=== PATIENT | male | born 1965 | race Caucasian/White ===

== ENCOUNTER 2023-03-31 09:13 | Outpatient (RCR) | payer OTHER, SELFPAY | END 2023-03-31 23:59 | disposition home or self-care (01) | LOC: RPT 09:13 | PROVIDERS: ATTENDING PHYSICIAN Physical Medicine & Rehabilitation; PRIMARYCARE PHYSICIAN Student in an Organized Health Care Education/Training Program | DX: M48.061 Spinal stenosis, lumbar region without neurogenic claudication (principal); M51.16 Intervertebral disc disorders with radiculopathy, lumbar region | CPT/HCPCS: 97010; 97110; 97140; 97162 ==

== ENCOUNTER 2023-04-30 12:04 | Outpatient (RCR) | payer OTHER, SELFPAY | END 2023-04-30 23:59 | disposition home or self-care (01) | LOC: RPT 12:04 | PROVIDERS: ATTENDING PHYSICIAN Physical Medicine & Rehabilitation; PRIMARYCARE PHYSICIAN Student in an Organized Health Care Education/Training Program | DX: M54.16 Radiculopathy, lumbar region (principal); M48.061 Spinal stenosis, lumbar region without neurogenic claudication; M51.36 Other intervertebral disc degeneration, lumbar region; Z73.6 Limitation of activities due to disability; M62.81 Muscle weakness (generalized); R26.2 Difficulty in walking, not elsewhere classified | CPT/HCPCS: 97010; 97110; 97140 ==

== ENCOUNTER 2023-12-28 08:22 | Emergency (ER) | payer OTHER, SELFPAY ==
[2023-12-28 08:23] VITALS: BP 234/144; BMI 45.1
[2023-12-28 08:51] LABS: % Basophils 0.7 % (0-2); % Eosinophils 3.4 % (0-6); % Immature Granulocytes 0.2 % (0-0.5); % Lymphocytes 18.6 % (20.5-51.1); % Monocytes 10.9 % (1.7-9.3); % Neutrophils 66.2 % (42.2-75.2); Absolute Basophils 0.1 10^3/uL (0-0.2); Absolute Eosinophils 0.3 10^3/uL (0-0.7); Absolute Lymphocytes 1.6 10^3/uL (1.2-3.4); Absolute Neutrophils 5.8 10^3/uL (1.4-6.5); Hematocrit 44.9 % (39.0-52.0); Hemoglobin 15.3 g/dL (13.0-18.0); Mean Corp Hgb Conc. 34.1 g/dL (33.0-37.0); Mean Corpuscular Hgb 28.1 pg (27.0-31.0); Mean Corpuscular Volume 82.4 fL (80.0-94.0); Mean Platelet Volume 12.2 fL (7.4-10.4); Nucleated Red Blood Cells % 0 % (-); Platelet Count 217 10^3/uL (130-400); Red Blood Cell Count 5.45 10^6/uL (4.70-6.10); Red Cell Dist. Width 13.8 % (11.5-14.5); White Blood Cell Count 8.7 10^3/uL (4.8-10.8)
[2023-12-28 08:56] LABS: Blood Urea Nitrogen 14 mg/dl (9-20); Calcium 9.7 mg/dl (8.4-10.2); Carbon Dioxide 27 mmol/L (22-30); Chloride 103 mmol/L (98-107); Estimated Creatinine Clearance > 125 ml/min; Glucose 110 mg/dl (70-99); Sodium 143 mmol/L (135-145); eGFR > 60.00
--- NOTE | 2023-12-28 08:56 | ED.GENMED ---
History of Present Illness
General
Chief Complaint: Dizziness
Source: patient
Exam Limitations: none
Time Seen by Provider: 12/28/23 08:37
Nursing documentation reviewed up to this point in time: agreed with
History of Present Illness
History of Present Illness:
58-year-old male with history of hypertension, hyperlipidemia, asthma, obesity, diabetes presents to the ER for evaluation of hypertension. Patient was brought over from outpatient echocardiogram due to severe hypertension. Patient reports that he
has had issues with resistant hypertension and has been on multiple antihypertensives currently takes labetalol, valsartan/hydrochlorothiazide to control his blood pressure. He has been following with Dr. Stockton for his blood pressure and was
scheduled for outpatient echocardiogram today due to his high blood pressure. Today had echocardiogram he was noted to be severely hypertensive and was brought over prior to the study being completed. He says he did have some dizziness today and
says that he was feeling anxious when he realized his blood pressure was very high. He denies any headache. He denies any chest pain. He denies any shortness of breath. He denies any nausea or vomiting. Denies any weakness or numbness in his
extremities. No change in his vision. He says that he had not taken his blood pressure medication but when they discovered his blood pressure was very high he took his morning dose of labetalol as well as his Diovan (approximately 20 minutes prior
to arriving here in the ER). He does note that he has been on Ozempic recently for weight loss and has lost about 40 pounds this year successfully but despite this his blood pressure has actually been trending upwards as an outpatient.
Past History
Past History
ED Past Medical History: HTN, Hypercholesterolemia and Other (Seasonal allergies )
Social History
Tobacco: Non-smoker
Living: with family
Employment: Employed
Family History
Family History: Early CAD (Dad with [place] at 39 )
Review of Systems
Review of Systems
All Other Systems: ROS reviewed and negative except as documented in HPI and ROS
Constitutional: Denies fever or chills
Respiratory: Denies cough or trouble breathing
Cardiac: Denies chest pain or palpitations
ABD/GI: Denies abdominal pain, nausea or vomiting
: Denies flank pain
Musculoskeletal: Denies neck pain or back pain
Neurological: Reports dizzy; Denies headache, weakness or numbness
Phy Exam
Physical Exam
Physical Exam:
General: Awake, alert, oriented x3; anxious but no acute distress
Head: Normocephalic, atraumatic
Eyes: Conjunctiva normal, EOMI, pupils equal round reactive to light bilaterally
Throat: Airway intact, handling secretions
Neck: Trachea midline, supple without meningismus
Lungs: Clear to auscultation bilaterally, no wheezing, rales, rhonchi
Heart: Regular rate and rhythm, no murmurs, gallops, or rubs
Abd: Soft, non distended, nontender
Neuro: Cranial nerves grossly intact, speech fluid, no gross motor or sensory deficits
Skin: no rash
Extremities: No edema in extremities, equal pulses in all extremities
Scores
Heart Failure Risk
Heart Failure Risk Score: Not Applicable
Heart Score for Chest Pain Patients
STEMI patient?: Not applicable
Withdrawal Assessment of Alcohol
Withdrawal Assessment Completed?: Not applicable
Course
Orders/Labs/Results
Orders:
Orders
12/28/23 08:27
ECG [Electrocardiogram (*1)] Urgent
Reason for Study: Vertigo / Dizzy
EKG- Treatment ONCE
12/28/23 08:30
Basic Metabolic Panel Urgent
Complete Blood Count/With Diff Urgent
TSH Reflex To Free T4 Urgent
Comment: ADD ON
12/28/23 08:38
CT Head W/o Iv Contrast Urgent
Comment:
Reason For Exam: severe HTN, dizziness
12/28/23 08:48
Clonidine [Catapres] 0.2 mg PO NOW STA
HydrALAZINE [Apresoline] 10 mg IV NOW STA
12/28/23 08:59
Add On- LAB Urgent
Tests Added?: TSH reflex to Free T4
12/28/23 09:00
Troponin I Urgent
Urinalysis Reflex To Culture Urgent
Date Specimen was Collected: 12/28/23
Time Specimen was Collected: 08:58
Abnormal Lab Results
12/28/23
08:30
MPV 12.2 H fL
(7.4-10.4)
Absolute Monos (auto) 1.0 H 10^3/uL
(0.1-0.6)
Lymphocytes % 18.6 L %
(20.5-51.1)
Monocytes % 10.9 H %
(1.7-9.3)
Glucose 110 H mg/dl
(70-99)
12/28/23 08:30
12/28/23 08:30
Vital Signs
Initial and Last Documented VS:
Initial Vital Signs
Temp Pulse Resp BP Pulse Ox
36.8 C 80 18 234/144 99
12/28/23 08:23 12/28/23 08:23 12/28/23 08:23 12/28/23 08:23 12/28/23 08:23
Last Documented Vital Signs
Temp Pulse Resp BP Pulse Ox
36.8 C 74 13 156/86 94
12/28/23 08:23 12/28/23 10:30 12/28/23 10:30 12/28/23 10:30 12/28/23 10:15
MDM/Problems Addressed
Differential Diagnosis Includes:
Hypertensive urgency
MDM/Problems Addressed:
58-year-old male presents for evaluation of severe hypertension; was scheduled for outpatient echocardiogram in part following up on resistant outpatient hypertension. He did not have the study performed but instead referred to the ER for his
severe hypertension. He had not taken his blood pressure medication this morning, but did take his morning dose of labetalol and Diovan prior to coming over to the ER. He had some dizziness prior to arrival but is asymptomatic here in the ER. He
is severely hypertensive to 234/144 here with otherwise normal vitals. Physical exam as above. Will check labs including a CBC and a CMP, troponin. Check an EKG. Will check CT head. Provide IV hydralazine can trial some p.o. clonidine in
addition to meds he took prior to arrival. Will reassess after the above.
Labs reviewed: CBC and CMP unremarkable�renal function normal. Troponin undetectable. Urinalysis: Trace albumin. CT head negative for any acute pathology. After ED treatment with hydralazine and clonidine patient's blood pressure has improved
significantly down to 156/86. Hold on additional aggressive blood pressure control to avoid overshooting and causing dizziness. He feels well on reassessment, I think he is stable for discharge at this point in time. He responded quite well to
clonidine we will start low-dose clonidine daily. Referred to nephrology for further evaluation of his resistant blood pressure. He feels comfortable this plan. Spoke about return precautions all questions answered.
Chronic conditions affecting care:
Hypertension
Acute Exacerbation and/or Progression of Chronic Illness:
Acutely hypertensive managed as above
Acute Exacerbation and/or Progression of Chronic Illness: HTN
*Radiology
Radiology exam reviewed: radiology read reviewed
*Pulse Oximetry
Patient hypoxic: no
*EKG
Interpreted by ED Provider?: Yes
Heart Rate: 79
Rate: normal
Rhythm: sinus
Interval: normal interval
QRS Pattern: right bundle branch block
Ischemia: no ischemia
*Critical Care Note
Total Time (30-74mins, 75-104mins- exclusive of procedures): Not Applicable
Data Reviewed
Review of Other/Old Records Reveals: Labs and Records
Source: patient and records
ED Attending Note
-
Portions of this chart may have been created with voice recognition software.� Occasional wrong word or��sound alike� substitutions may have occurred due to the inherent limitations of voice recognition software.
Discharge Plan
Departure
Patient Disposition: Home (Routine Discharge)
Date of Disposition: 12/28/23
Time of Disposition: 11:35
Patient with high blood pressure during this ER visit?: Yes
Discharge Problem:
Hypertensive urgency
Instructions: High Blood Pressure ED
Prescriptions:
New
clonidine HCl 0.2 mg tablet
0.2 mg PO DAILY Qty: 30 0RF
No Action
fluticasone propion-salmeterol [Advair Diskus] 250 MCG/50 MCG blister with device
1 puff inhalation DAILY
potassium chloride [K-Tab] 10 MEQ tablet extended release
10 meq PO BID
calcium carbonate [Calcium 500] 500 MG tablet
500 mg PO BID
valsartan-hydrochlorothiazide [Diovan HCT] 160 MG/25 MG tablet
1 tab PO DAILY
rosuvastatin [Crestor] 10 MG tablet
10 mg PO DAILY
multivitamin with folic acid [Tab-A-Inga] 1 TABLET tablet
1 tab PO DAILY
Referrals:
Nica Medeiros MD [Family Provider] - Follow up in 5-7 days
Jaosn Ortiz MD [Active] - Call in 1-3 days for appt
()
Activity Restrictions/Additional Instructions:
Thank you for visiting the Emergency Department at [facility].
1. Please schedule a follow up appointment as directed. Call first thing tomorrow morning to make an appointment.
2. If indicated, please take your medications as instructed and indicated on discharge paperwork.
3. If any of your symptoms do not improve, or persist, or become more severe within 6-12 hours, please return to the emergency department for further care.
4. Please return to the emergency department if you develop a headache, neck pain/stiffness, fever greater than 100.4F, chest pain, shortness of breath, persistent nausea, vomiting, slurred speech, difficulty walking, numbness/tingling, weakness,
signs of infection or any other symptoms that are worrisome to you.
Please call [phone] if you have any questions.
Interventions
Interventions:
*Risk Screen - Suicide Last Done: 12/28/23 08:23
*General Assessment Last Done: 12/28/23 08:23
*Neglect/Abuse Screening Last Done: 12/28/23 08:23
ED- Fall Risk Assessment Last Done: 12/28/23 09:00
*ED COVID-19 Vaccine History Last Done: 12/28/23 08:28
ED- Neurological Assessment Last Done: 12/28/23 09:00
ED- Cardiac Assessment Last Done: 12/28/23 09:00
ED Swallowing Screen Last Done: 12/28/23 09:00
Discharge Date and Time
Print Language: VENEZUELAN
[2023-12-28 09:14] LABS: Urine Albumin Trace (Neg - Trace); Urine Bilirubin Negative (Negative); Urine Character Clear (Clear); Urine Color Yellow; Urine Glucose Negative (Negative); Urine Ketone Negative (Negative); Urine Leukocyte Negative (Negative); Urine Nitrite Negative (Negative); Urine Occult Blood Negative (Negative); Urine Urobilinogen Negative (Neg - 1+)
[2023-12-28 09:15] VITALS: BP 218/114
[2023-12-28] MEDS: CATAPRES 0.2 MG PO (09:16)
[2023-12-28] MEDS: APRESOLINE 10 MG IV (09:17)
[2023-12-28 09:30] VITALS: BP 195/101
[2023-12-28 09:37] LABS: Troponin I < 0.012 ng/ml
[2023-12-28 10:00] VITALS: BP 165/90
[2023-12-28 10:30] VITALS: BP 156/86
[2023-12-28 11:00] VITALS: BP 162/88
[2023-12-28 12:00] LABS: TSH Reflex To Free T4 2.01 uIU/ml (0.47-4.68)
== END 2023-12-28 11:46 | disposition home or self-care (01) ==
LOC: EMR 08:22
PROVIDERS: EMERGENCY PHYSICIAN Emergency Medicine; FAMILY PHYSICIAN Student in an Organized Health Care Education/Training Program
DX: I16.0 Hypertensive urgency (principal); E11.9 Type 2 diabetes mellitus without complications; E78.00 Pure hypercholesterolemia, unspecified; J45.909 Unspecified asthma, uncomplicated
CPT/HCPCS: 99285; 96374; 70450; 80048; 81003; 84443; 84484; 85025; 93005

== ENCOUNTER 2024-01-01 15:02 | Inpatient (IN) | payer OTHER, SELFPAY ==
[2024-01-01] VITALS (8 sets, daily range): BP systolic 163–190; BP diastolic 99–114; BMI 43.6
--- NOTE | 2024-01-01 13:55 | W.CON.NEPH ---
Consultation
-
Date/Time Consultation Requested: 01/01/2024 1:00 PM
Date/Time Consultation Performed: 01/01/2024 1:30 PM
Requesting Provider: Dr. Gan
Performing Provider: Dr. Tony
Reason for Consultation: Uncontrolled hypertension
Medical History
-
Chief Complaint: Uncontrolled hypertension
History of Present Illness:
The patient is a 58-year-old male with a past medical history of hypertension since his mid 40s. He has been managed by cardiology for his hypertension and did previously had an idiopathic nonischemic cardiomyopathy which is subsequently resolved.
He is maintained on a multidrug regimen and over the past several weeks has had uncontrolled hypertension. He recently was seen in the emergency room earlier this week where he was placed on clonidine. His blood pressure at that time was 234/144 .
Additionally he is maintained on valsartan aldactone and labetalol,hydralazine, and hydrochlorothiazide. He presented to the hospital today with systolic blood pressures of 200 and diastolic blood pressures above 110. He notes nasal congestion
but no complaints of headache visual changes chest pain or shortness of breath. He has a history of dyslipidemia and is maintained on statin therapy. He was recently placed on Ozempic for his diabetes. Nephrology was consulted for his
uncontrolled hypertension.
Past Medical History
Hypertension
Obesity
Dyslipidemia
Prior history of nonischemic cardiomyopathy subsequently resolved
asthma
DM
Social History
Tobacco: Non-Smoker
Family History
Coronary artery disease peripheral vascular disease hypertension and kidney disease (Father)
Allergies / Home Medications
Allergy/AdvReac Type Severity Reaction Status Date / Time
Penicillins Allergy Unknown Unknown Verified 01/01/24 10:24
�Medication �Instructions �Recorded �Confirmed �Type
calcium carbonate (Calcium 500) 500 mg PO BID 07/26/09 07/26/09 History
fluticasone 250 mcg-salmeterol 50 1 puff inhalation DAILY 07/26/09 07/26/09 History
mcg/dose blistr powdr for
inhalation (Advair Diskus)
multivitamin with folic acid 400 1 tab PO DAILY 07/26/09 07/26/09 History
mcg tablet (Tab-A-Inga)
potassium chloride 10 mEq 10 meq PO BID 07/26/09 07/26/09 History
tablet,extended release (K-Tab)
rosuvastatin 10 mg tablet (Crestor) 10 mg PO DAILY 07/26/09 07/26/09 History
valsartan 160 1 tab PO DAILY 07/26/09 07/26/09 History
mg-hydrochlorothiazide 25 mg
tablet (Diovan HCT)
clonidine HCl 0.2 mg tablet 0.2 mg PO DAILY #30 tabs 12/28/23 Rx
Review of Systems
-
History Source: Patient
All other systems: Negative unless noted
EENT: Runny Nose
Physical Exam
Vital Signs
Vital Signs
Temp Pulse Resp BP Pulse Ox
97.7 F 61 20 163/112 95
01/01/24 10:25 01/01/24 13:15 01/01/24 12:30 01/01/24 13:00 01/01/24 13:15
Physical Exam
General: AOx3, Nontoxic , NAD.obese
HEENT: PERRL, EOMI, Anicteric, Conjunctivae Clear, Ear/Nose Intact, Hearing Normal, Oropharynx Clear/Moist, Dentition Intact, Facial Symmetry, Neck Supple, Neck: Trachea Midline, No JVD and No Thyromegaly, no Bruits
Respiratory: Clear to auscultation bilaterally with normal lung exersion
Cardiac: S1/S2 and Regular Rate/Rhythm
Breast: Deferred by me
Abdomen: Soft, Nontender, Nondistended, Normal Bowel Sounds and No Hepatosplenomegaly
Rectal: Deferred by Provider
Genito-urinary: No Costovertebral Tenderness
Extremities: No Clubbing, No Cyanosis and No Edema
Skin: No Rash or open lesions
Neuro: Nonfocal/Grossly Intact, CN II-XII (Intact) and Strength (Musculoskeletal exam 5 out of 5 both upper and lower extremities)
Hematologic/Lymphatic: No Cervical Lymphadenopathy, No Submandibular Lymphadenopathy and No Supraclavicular Lymphadenopathy
Psych: Mood/afflect pleasant, Insight/judgement good and Appropriate
Vascular: plus 2 pedal and radial pulses
Data Reviewed
-
Medical Tests (Nuc Med, Echo etc): Other (EKG report reviewed normal sinus rhythm right bundle branch block at 71 bpm)
Labs: Labs Reviewed by me
Old Records: Reviewed
Assessment/Plan
-
Impression:
Uncontrolled HTN
Obesity
DM
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
HL
Asthma
History of hypokalemia
Plan:
Uncontrolled HTN (asymptomatic)
-Given his multi drug resistant hypertension it is feasible that he could have a secondary component to his hypertension
-Lab work reviewed from 12/28/2023 revealed normal creatinine of 0.9 and potassium level of 3.3
-Concur with cardiology with increasing Aldactone to 25 mg twice a day as there may be a hyperaldosterone component given his hypokalemia and resistant hypertension
-Would also check plasma catecholamines serum metanephrine levels and renal artery duplex or CT angiogram to assess for renal artery stenosis
-Would obtain TSH and free T4
-In the interim can provide hydralazine 10 mg IV every 6 hours to start for systolic blood pressures of 160 or greater or diastolic blood pressure greater than 110
-Maintain all current oral antihypertensives
[2024-01-01] MEDS: APRESOLINE 5 MG IV (13:57)
[2024-01-01 14:14] LABS: % Basophils 0.7 % (0-2); % Eosinophils 2.2 % (0-6); % Immature Granulocytes 0.3 % (0-0.5); % Lymphocytes 18.4 % (20.5-51.1); % Monocytes 9.4 % (1.7-9.3); Absolute Basophils 0.1 10^3/uL (0-0.2); Absolute Eosinophils 0.2 10^3/uL (0-0.7); Absolute Lymphocytes 1.7 10^3/uL (1.2-3.4); Absolute Monocytes 0.9 10^3/uL (0.1-0.6); Absolute Neutrophils 6.2 10^3/uL (1.4-6.5); Hematocrit 42.1 % (39.0-52.0); Hemoglobin 14.5 g/dL (13.0-18.0); Mean Corp Hgb Conc. 34.4 g/dL (33.0-37.0); Mean Corpuscular Hgb 28.2 pg (27.0-31.0); Mean Corpuscular Volume 81.9 fL (80.0-94.0); Nucleated Red Blood Cells % 0 % (-); Platelet Count 211 10^3/uL (130-400); Red Blood Cell Count 5.14 10^6/uL (4.70-6.10); Red Cell Dist. Width 13.5 % (11.5-14.5)
--- NOTE | 2024-01-01 14:16 | ED.GENMED ---
History of Present Illness
General
Chief Complaint: Blood Pressure Problem
Source: patient
Exam Limitations: none
Time Seen by Provider: 01/01/24 11:32
History of Present Illness
History of Present Illness:
58-year-old male complaining of significant ongoing hypertension issues and multiple vague symptoms including slight lightheadedness nasal congestion fatigue. Patient has a long history of hypertension issues. Chronically has been on labetalol
spironolactone valsartan and hydralazine. Clonidine was added this week. Has a history of nonischemic cardiomyopathy. However ejection fraction has resolved. Patient was seen earlier in the week for same with the clonidine was added
Past History
Past History
ED Past Medical History: HTN, Hypercholesterolemia and Other (Seasonal allergies )
Social History
Tobacco: Non-smoker
Living: with family
Employment: Employed
Family History
Family History: Early CAD (Dad with [place] at 39 )
Review of Systems
Review of Systems
All Other Systems: Not applicable
Respiratory: Reports no symptoms
Cardiac: Reports no symptoms
Phy Exam
Physical Exam
Physical Exam:
GENERAL: Alert and oriented in no apparent distress
EYE: Orbits normal.
NECK: Supple, no thyroid palpable. Elevated BMI
ENT: Pharynx without erythema
CARDIAC: Regular rate and rhythm without any obvious murmurs.
LUNGS: Clear breath sounds,normal
ABDOMEN: Soft, without focal tenderness or distention
NEUROLOGICAL: Alert and oriented , grossly non-focal
SKIN: Warm and dry, no rash or lesion, no discoloration, skin intact.
MUSCULOSKELETAL: No edema,no deformity.Good color
PSYCH: Normal and appropriate interaction.
Course
Orders/Labs/Results
Orders:
Orders
01/01/24 12:02
Electrocardiogram (*1) Urgent
Reason for Study: Hypertension, Benign
EKG- Treatment ONCE
01/01/24 13:34
HydrALAZINE [Apresoline] 5 mg IV NOW STA
01/01/24 14:03
Complete Blood Count/With Diff Urgent
Comprehensive Metabolic Panel Urgent
Abnormal Lab Results
01/01/24
14:03
MPV 12.0 H fL
(7.4-10.4)
Absolute Monos (auto) 0.9 H 10^3/uL
(0.1-0.6)
Lymphocytes % 18.4 L %
(20.5-51.1)
Monocytes % 9.4 H %
(1.7-9.3)
01/01/24 14:03
Vital Signs
Initial and Last Documented VS:
Initial Vital Signs
Temp Pulse Resp BP Pulse Ox
97.7 F 71 16 190/114 97
01/01/24 10:25 01/01/24 10:25 01/01/24 10:25 01/01/24 10:25 01/01/24 10:25
Last Documented Vital Signs
Temp Pulse Resp BP Pulse Ox
97.7 F 80 20 163/112 95
01/01/24 10:25 01/01/24 13:57 01/01/24 12:30 01/01/24 13:57 01/01/24 13:15
MDM/Problems Addressed
Differential Diagnosis Includes:
Ongoing uncontrolled hypertension despite multiple medications. With a 40 pound weight loss since starting Ozempic in the late spring you would expect his blood pressure to actually have gone down. Discussed multiple times with both cardiology and
nephrology. Nephrology felt appropriate would be admission and further inpatient management and workup.
*Pulse Oximetry
Patient hypoxic: no
*EKG
Interpreted by ED Provider?: Yes
Interpretation: abnormal
Comparison EKG: no changes
Heart Rate: 71
Rate: normal
Rhythm: sinus
Thatcher: normal axis
Interval: normal interval
QRS Pattern: right bundle branch block
Ischemia: no ischemia
*Manager Of It Interpretation
Rate: normal
Interpretation: normal
Heart Rate: 70
Rhythm: sinus
*Critical Care Note
Total Time (30-74mins, 75-104mins- exclusive of procedures): Not Applicable
ED Attending Note
-
Portions of this chart may have been created with voice recognition software.� Occasional wrong word or��sound alike� substitutions may have occurred due to the inherent limitations of voice recognition software.
Discharge Plan
Departure
Patient Disposition: Admit
Date of Disposition: 01/01/24
Time of Disposition: 13:56
Presentation/result/management discussed w/ accepting MD/DO: Nephrology/cardiology
Discharge Problem:
Refractory hypertension
Prescriptions:
No Action
fluticasone propion-salmeterol [Advair Diskus] 250 MCG/50 MCG blister with device
1 puff inhalation DAILY
potassium chloride [K-Tab] 10 MEQ tablet extended release
10 meq PO BID
calcium carbonate [Calcium 500] 500 MG tablet
500 mg PO BID
valsartan-hydrochlorothiazide [Diovan HCT] 160 MG/25 MG tablet
1 tab PO DAILY
rosuvastatin [Crestor] 10 MG tablet
10 mg PO DAILY
multivitamin with folic acid [Tab-A-Inga] 1 TABLET tablet
1 tab PO DAILY
clonidine HCl 0.2 mg tablet
0.2 mg PO DAILY Qty: 30 0RF
Referrals:
Nica Medeiros MD [Family Provider] -
Interventions
Interventions:
*Risk Screen - Suicide Last Done: 01/01/24 10:25
*General Assessment Last Done: 01/01/24 10:25
*Neglect/Abuse Screening Last Done: 01/01/24 10:25
*ED COVID-19 Vaccine History Last Done: 01/01/24 12:04
ED- Cardiac Assessment Last Done: 01/01/24 12:04
ED- Neurological Assessment Last Done: 01/01/24 12:04
ED- Pulmonary Assessment Last Done: 01/01/24 12:04
Discharge Date and Time
Print Language: TURKMEN
--- NOTE | 2024-01-01 14:35 | HPS.HSE ---
Family Physician
-
Family Physician: Nica Medeiros MD
Chief Complaint
-
High BP
History of Present Illness
Patient is a 58y M with PMH significant for obesity and HTN who presents to ED complaining of high BP readings at home. Patient has been on multidrug regimen for BP control since 2019. About 2 weeks ago, he noted that BP was elevated at PCP
office (180/110). He was advised to monitor his BP at home and it has remained elevated since that time. He was seen here in the ED on 12/28/23 and treated in the ED with IV medications. His BP improved and he was discharged for OP follow-up.
Patient returns today with BP at home remaining 200/110s consistently.
He feels a 'sense of anxiety' but otherwise has no complaints. No chest pain, palpitations, dyspnea, etc.
Patient started taking Ozempic in August and has lost 40 lbs in that time.
He was most recently started on clonidine (ED visit 12/27) and this has since been increased to two tabs BID.
Medical History
Past Medical History
Past Medical History: Reports Other
Additional Past Medical History:
Hypertension
Obesity
Lumbar Spinal Stenosis
Allergic Rhinitis
GERD
ZOFIA (intolerant of PAP therapy)
Idiopathic / Non-Ischemic Cardiomyopathy
Past Surgical History: Reports Other
Additional Past Surgical History:
Left Knee Arthroscopy
Right Eyelid Surgery
Social History
Tobacco: Non-smoker
Alcohol: Occasional
Drug: None
Family History
Family History: Other (Father: HTN, ASCVD, CKD Mother: Longevity)
Allergies / Home Medications
Allergies reflects when Allergies were last updated in [facility].
Home Medications with original date entered in [facility]
Allergy/Medication List:
Allergies
Allergy/AdvReac Type Severity Reaction Status Date / Time
Penicillins Allergy Unknown Unknown Verified 01/01/24 10:24
Home Medications
albuterol sulfate 90 mcg/actuation aerosol inhaler 2 puff inhalation R [id number] PRN sob 01/01/24
clonidine HCl 0.2 mg tablet 0.2 mg PO BID 01/01/24
colchicine 0.6 mg tablet 0.3 mg PO DAILYPRN PRN gout flare 01/01/24
hydralazine 50 mg tablet 50 mg PO TID 01/01/24
labetalol 200 mg tablet 200 mg PO BID 01/01/24
olopatadine 0.2 % eye drops 1 drp BOTH EYES DAILYPRN PRN eye irritation 01/01/24
semaglutide 1 mg/dose (4 mg/3 mL) subcutaneous pen injector (Ozempic) 1 mg SC SA 01/01/24
spironolactone 25 mg tablet 25 mg PO NOON 01/01/24
valsartan 320 mg tablet 320 mg PO DAILY 01/01/24
Review of Systems
-
History Source: Patient
A 12 point ROS was completed and negative except as noted: Yes
Constitutional: Reports Weight Loss (intentional - on Ozempic); Denies Fever, Fatigue or Chills
EENT: Denies Sore Throat
Respiratory: Denies Cough or Trouble Breathing
Cardiac: Denies Chest Pain or Palpitations
Abdomen/GI: Denies Abdominal Pain, Nausea, Vomiting or Diarrhea
: Denies Dysuria, Frequency or Flank Pain
Musculoskeletal: Denies Joint Pain or Edema
Neurological: Denies Dizzy or Headache
Psych: Reports Anxiety; Denies Depression
Physical Exam
Vital Signs
Vital Signs
Temp Pulse Resp BP Pulse Ox
97.7 F 72 17 180/100 99
01/01/24 10:25 01/01/24 14:21 01/01/24 14:21 01/01/24 14:21 01/01/24 14:21
Physical Exam
General: Other (58y M in no acute distress.)
HEENT: Moist mucous membranes, PERRLA and Other (Thick neck.)
Respiratory: Clear; No Wheezes, Rales or Rhonchi
Cardiac: S1/S2 and Regular Rhythm; No Murmur
GI: Soft, Non Tender, Non Distended and Normal Bowel Sounds
Musculoskeletal: No Clubbing, No Cyanosis, No Edema and Other (Chronic venous stasis skin changes.)
Neuro: AO x 3
Laboratory Results
-
01/01/24 14:03
Laboratory Results
Total Bilirubin Cancelled 01/01/24 14:03
AST Cancelled 01/01/24 14:03
ALT Cancelled 01/01/24 14:03
Alkaline Phosphatase Cancelled 01/01/24 14:03
Impression/Plan
-
A/P: Patient is a 58y M with PMH significant for HTN and obesity who presents to ED with uncontrolled hypertension.
Uncontrolled Hypertension
- Admit for further evaluation and treatment.
- Continue current medications + IV hydralazine as needed for very high BP.
- Appreciate Nephrology evaluation.
- Pursue evaluation for secondary causes of hypertension.
- Note that patient has ZOFIA and is intolerant of PAP therapy - this is likely contributing to some degree.
- Follow for improvement in BP / adjust med regimen as needed.
History of Non-Ischemic Cardiomyopathy
- Patient states that he had a recent outpatient Echo - follow-up these results.
- Last Echo in system (2019) showed normal / recovered EF.
Morbid Obesity
ZOFIA not on PAP Therapy
- Affects all aspects of care including uncontrolled HTN.
- Encourage continued efforts at weight loss - note 40 lbs weight loss since August.
- Would likely benefit from some form of ZOFIA management and would consider further OP follow-up in that regard.
DVT Prophylaxis: Lovenox
Code Status: Full
[2024-01-01 14:36] LABS: Blood Urea Nitrogen 13 mg/dl (9-20); Calcium 9.5 mg/dl (8.4-10.2); Carbon Dioxide 27 mmol/L (22-30); Chloride 104 mmol/L (98-107); Glucose 106 mg/dl (70-99); Sodium 143 mmol/L (135-145); eGFR > 60.00
[2024-01-01] MEDS: LOVENOX 40 MG SC (17:15)
[2024-01-01] MEDS: APRESOLINE 50 MG PO ×2 (17:15→21:16)
[2024-01-01] MEDS: APRESOLINE 10 MG IV (18:45)
[2024-01-01] MEDS: CATAPRES 0.2 MG PO (20:05)
[2024-01-01] MEDS: ALDACTONE 25 MG PO (20:05)
[2024-01-01] MEDS: TRANDATE 200 MG PO (20:06)
[2024-01-01 22:37] LABS: TSH Reflex To Free T4 1.43 uIU/ml (0.47-4.68)
[2024-01-02 03:11] VITALS: BP 188/111
[2024-01-02] MEDS: APRESOLINE 10 MG IV (03:15)
[2024-01-02 05:30] VITALS: BMI 43.2
[2024-01-02 07:00] VITALS: BP 137/85; BP 176/107
[2024-01-02 07:22] LABS: Hematocrit 42.6 % (39.0-52.0); Hemoglobin 14.7 g/dL (13.0-18.0); Mean Corp Hgb Conc. 34.5 g/dL (33.0-37.0); Mean Corpuscular Hgb 28.5 pg (27.0-31.0); Mean Corpuscular Volume 82.6 fL (80.0-94.0); Mean Platelet Volume 12.7 fL (7.4-10.4); Platelet Count 197 10^3/uL (130-400); Red Blood Cell Count 5.16 10^6/uL (4.70-6.10); Red Cell Dist. Width 13.5 % (11.5-14.5); White Blood Cell Count 7.9 10^3/uL (4.8-10.8)
[2024-01-02 08:01] LABS: Blood Urea Nitrogen 12 mg/dl (9-20); Calcium 9.5 mg/dl (8.4-10.2); Carbon Dioxide 25 mmol/L (22-30); Chloride 105 mmol/L (98-107); Estimated Creatinine Clearance > 125 ml/min; Glucose 117 mg/dl (70-99); Potassium 3.9 mmol/L (3.5-5.1); Sodium 142 mmol/L (135-145); eGFR > 60.00
[2024-01-02] MEDS: APRESOLINE 50 MG PO ×3 (08:22→21:23)
[2024-01-02] MEDS: ALDACTONE 25 MG PO ×2 (08:23→20:39)
[2024-01-02] MEDS: DIOVAN 320 MG PO (08:23)
[2024-01-02] MEDS: CATAPRES 0.2 MG PO ×2 (09:31→20:39)
[2024-01-02] MEDS: TRANDATE 200 MG PO (09:31)
[2024-01-02] MEDS: OCEAN, SALINE MIST 2 SPRAYS NASAL (09:49)
--- NOTE | 2024-01-02 10:58 | W.PN.NEPH.PH ---
Today's Communication / Plan
-
CT angiogram tomorrow to evaluate for PATEL
Assessment/Plan
-
Impression:
Uncontrolled HTN
Obesity
DM
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
HL
Asthma
History of hypokalemia
Plan:
Uncontrolled HTN (asymptomatic)
-Given his multi drug resistant hypertension it is feasible that he could have a secondary component to his hypertension
-Lab work reviewed from 12/28/2023 revealed normal creatinine of 0.9 and potassium level of 3.3
-Concur with cardiology with increasing Aldactone to 25 mg twice a day as there may be a hyperaldosterone component given his hypokalemia and resistant hypertension
-Would also check plasma catecholamines serum metanephrine levels and renal artery CT angiogram to assess for renal artery stenosis tomorrow
-Would obtain TSH and free T4
-In the interim can provide hydralazine 10 mg IV every 6 hours to start for systolic blood pressures of 160 or greater or diastolic blood pressure greater than 110
-Maintain all current oral antihypertensives
-
-
Date of Service: January 02, 2024
CC / HPI / ROS
-
Chief Complaint:
Uncontrolled hypertension
History of Present Illness:
Blood pressure remains elevated
Review of Systems:
No evidence of chest pain shortness of breath headache or visual disturbance
Labs
-
Labs:
WBC 7.9 10^3/uL (4.8-10.8) 01/02/24 06:59
RBC 5.16 10^6/uL (4.70-6.10) 01/02/24 06:59
Hgb 14.7 g/dL (13.0-18.0) 01/02/24 06:59
Hct 42.6 % (39.0-52.0) 01/02/24 06:59
Plt Count 197 10^3/uL (130-400) 01/02/24 06:59
Sodium 142 mmol/L (135-145) 01/02/24 06:59
Potassium 3.9 mmol/L (3.5-5.1) 01/02/24 06:59
Chloride 105 mmol/L (98-107) 01/02/24 06:59
Carbon Dioxide 25 mmol/L (22-30) 01/02/24 06:59
BUN 12 mg/dl (9-20) 01/02/24 06:59
Creatinine 0.8 mg/dL (0.7-1.3) 01/02/24 06:59
eGFR > 60.00 01/02/24 06:59
Glucose 117 mg/dl (70-99) H 01/02/24 06:59
Calcium 9.5 mg/dl (8.4-10.2) 01/02/24 06:59
Albumin Cancelled 01/01/24 14:03
Physical Exam
-
Vital Signs:
Vital Signs
Temp Pulse Resp BP Pulse Ox
97.3 F 68 16 178/104 98
01/02/24 07:00 01/02/24 09:31 01/02/24 07:00 01/02/24 09:31 01/02/24 07:00
Cardiovascular:: Regular rate and rhythm
Respiratory:: Bilateral: CTA
Lung Excursion:: Normal
Abdomen:: Soft
Bowel Sounds:: Normal
Extremity Edema:: None: Bilateral:
Ro Catheter: No
[2024-01-02 11:00] VITALS: BP 137/85
--- NOTE | 2024-01-02 11:48 | W.PN.HOSP.TC ---
Addendum entered and electronically signed by Oh Nair MD 01/02/24 12:00:
the echo he had scheduled for 12/27 wasn't done because his BP was too high.
Original Note:
Today's Communication/Plan
-
CT Renal tomm
cont home po meds
IV prn
Assessment / Plan
Assessment / Plan
A/P: Patient is a 58y M with PMH significant for HTN and obesity who presents to ED with uncontrolled hypertension.
Uncontrolled Hypertension
- Continue current medications + IV hydralazine as needed for very high BP.
- Appreciate Nephrology evaluation.
- Pursue evaluation for secondary causes of hypertension. Catecholamine, metanephrine level pending.
- Note that patient has ZOFIA and is intolerant of PAP therapy - this is likely contributing to some degree.
- Labetalol dose increased to 300 mg twice daily. Continue with Diovan 320 mg daily. Aldactone 25 mg twice daily, hydralazine 50 mg 3 times daily and clonidine 0.2 mg twice daily.
- If no improvement after CAT scan can adjust home regimen
- Plan for CTA renal to assess for renal artery stenosis
History of Non-Ischemic Cardiomyopathy
- Patient states that he had a recent outpatient Echo - follow-up these results. Records requested.
- Last Echo in system (2019) showed normal / recovered EF.
Morbid Obesity
ZOFIA not on PAP Therapy
- Affects all aspects of care including uncontrolled HTN.
- Encourage continued efforts at weight loss - note 40 lbs weight loss since August.
- Would likely benefit from some form of ZOFIA management and would consider further OP follow-up in that regard.
DVT Prophylaxis: Lovenox
Code Status: Full
Anticipated Discharge: > 48 hours
Subjective/Interval History
-
Date of Service: January 02, 2024
states of nasal stuffiness
denies headache or chest pain
Objective Data
-
Labs:
Laboratory Results
01/02/24
06:59
WBC 7.9
Hgb 14.7
Hct 42.6
Plt Count 197
Sodium 142
Potassium 3.9
Chloride 105
Carbon Dioxide 25
BUN 12
Creatinine 0.8
Glucose 117 H
Calcium 9.5
Vital Signs:
Vital Signs
Temp Pulse Resp BP Pulse Ox
97.3 F 68 16 178/104 98
01/02/24 07:00 01/02/24 09:31 01/02/24 07:00 01/02/24 09:31 01/02/24 07:00
I&O
01/01/24 01/02/24 01/03/24
06:59 06:59 06:59
Intake Total 600 / 600
Balance 600 / 600
Physical Exam
-
General: Well Developed, Well Nourished, No Apparent Distress and Morbidly Obese
HEENT: Normocephalic, Atraumatic and Moist Mucous Membranes
Respiratory: Clear to Auscultation
Cardiac: Regular Rhythm and S1/S2; Negative Murmur, Rub or Gallop
GI: Soft, Nontender, Nondistended and Normal Bowel Sounds; Negative Organomegaly
Rectal: Deferred by Provider
Musculoskeletal: No Clubbing, No Cyanosis and No Edema
Skin: Negative Rash
Neuro: Awake, Alert, Oriented, AO x 3, No Motor Deficits and Nonfocal/Grossly Intact
Psych: Calm
[2024-01-02 15:00] VITALS: BP 178/104
--- NOTE | 2024-01-02 15:32 | CM ---
Alert awake oriented patient who lives with his Sara who lives in a 2 story home with 2 step to enter and 14 steps to bed and bathroom. He is independent in driving and in all activities of daily living.He was offered VN he declined need.He
has supportive NADINE Zarate. Has CPAP with [facility].
No VN hx / No SNF history
Pharmacy [facility]
PCP DR De Luna
PLAN Home Declined VN
[2024-01-02] MEDS: LOVENOX SC ×2 (18:23→18:26)
[2024-01-02 19:00] VITALS: BP 187/110
[2024-01-02] MEDS: TRANDATE 300 MG PO (21:23)
[2024-01-02 23:00] VITALS: BP 146/99
[2024-01-03] VITALS (7 sets, daily range): BP systolic 151–199; BP diastolic 90–121; PULSE 63–69; BMI 43.8
--- NOTE | 2024-01-03 06:50 | W.PN.HOSP.TC ---
Today's Communication/Plan
-
cont blood pressure control
Assessment / Plan
Assessment / Plan
Physical Exam
General: Well Developed, Well Nourished, No Apparent Distress and Morbidly Obese
HEENT: Normocephalic, Atraumatic and Moist Mucous Membranes
Respiratory: Clear to Auscultation
Cardiac: Regular Rhythm and S1/S2; Negative Murmur, Rub or Gallop
GI: Soft, Nontender, Nondistended and Normal Bowel Sounds; Negative Organomegaly
Musculoskeletal: No Clubbing, No Cyanosis and No Edema
Skin: Negative Rash
Neuro: Awake, Alert, Oriented, AO x 3, No Motor Deficits and Nonfocal/Grossly Intact
Psych: Calm
A/P: Patient is a 58y M with PMH significant for HTN and obesity who presents to ED with uncontrolled hypertension.
Uncontrolled Hypertension
- Continue current medications + IV hydralazine as needed for very high BP.
- Appreciate Nephrology evaluation.
- Pursue evaluation for secondary causes of hypertension. Catecholamine, metanephrine level pending.
- Note that patient has ZOFIA and is intolerant of PAP therapy - this is likely contributing to some degree.
- Labetalol dose increased to 300 mg twice daily. Continue with Diovan 320 mg daily. Aldactone 25 mg twice daily, hydralazine 50 mg 3 times daily and clonidine 0.2 mg twice daily.
- CTA renal appreciated no renal artery stenosis
History of Non-Ischemic Cardiomyopathy
- Patient states that he had a recent outpatient Echo - follow-up these results. Records requested.
- Last Echo in system (2019) showed normal / recovered EF.
Morbid Obesity
ZOFIA not on PAP Therapy
- Affects all aspects of care including uncontrolled HTN.
- Encourage continued efforts at weight loss - note 40 lbs weight loss since August.
- Would likely benefit from some form of ZOFIA management and would consider further OP follow-up in that regard.
Dry Mouth
-possible side effect clonidine
-possible symptomatic B12 deficiency (B12 low normal)
DVT Prophylaxis: Lovenox
Code Status: Full
I spent a total of 50 minutes with the patient or on the floor. More than 50% of this time involved counseling and coordination of care.
Anticipated Discharge: 24 - 48 hours
Subjective/Interval History
-
Date of Service: January 03, 2024
reports dry mouth. No acute distress.
Objective Data
-
Labs:
Laboratory Results
01/03/24
06:00
Sodium Pending
Potassium Pending
Chloride Pending
Carbon Dioxide Pending
BUN Pending
Creatinine Pending
Glucose Pending
Calcium Pending
Vital Signs:
Vital Signs
Temp Pulse Resp BP Pulse Ox
97.6 F 69 14 164/98 96
01/03/24 03:00 01/03/24 03:00 01/03/24 03:00 01/03/24 03:00 01/03/24 03:00
I&O
01/01/24 01/02/24 01/03/24
06:59 06:59 06:59
Intake Total 600 / 600 1460 / 1460
Balance 600 / 600 1460 / 1460
[2024-01-03] MEDS: DIOVAN 320 MG PO (08:19)
[2024-01-03] MEDS: CATAPRES 0.2 MG PO ×2 (08:19→21:36)
[2024-01-03] MEDS: TRANDATE 300 MG PO ×2 (08:20→20:31)
[2024-01-03] MEDS: APRESOLINE 50 MG PO ×3 (08:20→21:36)
[2024-01-03] MEDS: ALDACTONE 25 MG PO ×2 (08:20→20:31)
[2024-01-03 08:53] LABS: Blood Urea Nitrogen 14 mg/dl (9-20); Calcium 9.3 mg/dl (8.4-10.2); Carbon Dioxide 26 mmol/L (22-30); Chloride 104 mmol/L (98-107); Estimated Creatinine Clearance > 125 ml/min; Glucose 108 mg/dl (70-99); Magnesium 2.2 mg/dl (1.6-2.3); Potassium 3.8 mmol/L (3.5-5.1); Sodium 142 mmol/L (135-145); eGFR > 60.00
--- NOTE | 2024-01-03 09:42 | W.PN.NEPH.PH ---
Today's Communication / Plan
-
see plan
Assessment/Plan
-
Impression:
Uncontrolled HTN
Obesity
DM
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
HL
Asthma
History of hypokalemia
Plan:
Uncontrolled HTN (asymptomatic)
-Given his multi drug resistant hypertension it is feasible that he could have a secondary component to his hypertension, compliant with CPAP
-Lab work reviewed from 12/28/2023 revealed normal creatinine of 0.9 and potassium level of 3.3
cont Aldactone to 25 mg twice a day and titrate as needed as there may be a hyperaldosterone component given his hypokalemia and resistant hypertension
pending plasma catecholamines serum metanephrine levels
renal artery CT angiogram to assess for renal artery stenosis-pending report
We likely add procardia vs HCTZ later today if BP remains high
-In the interim can provide hydralazine 10 mg IV every 6 hours to start for systolic blood pressures of 160 or greater or diastolic blood pressure greater than 110
-Maintain all current oral antihypertensives-Labetalol, hydralaizne, clonidine, Aldacotne and ARB
detailed discussion with pt
-
-
Date of Service: January 03, 2024
CC / HPI / ROS
-
Chief Complaint:
Uncontrolled hypertension
History of Present Illness:
Blood pressure remains elevated
no fever, cr 0.9, k 3.8
Review of Systems:
No evidence of chest pain shortness of breath headache or visual disturbance
when BP 200 range has mild YOON
Labs
-
Labs:
WBC 7.9 10^3/uL (4.8-10.8) 01/02/24 06:59
RBC 5.16 10^6/uL (4.70-6.10) 01/02/24 06:59
Hgb 14.7 g/dL (13.0-18.0) 01/02/24 06:59
Hct 42.6 % (39.0-52.0) 01/02/24 06:59
Plt Count 197 10^3/uL (130-400) 01/02/24 06:59
Sodium 142 mmol/L (135-145) 01/03/24 07:41
Potassium 3.8 mmol/L (3.5-5.1) 01/03/24 07:41
Chloride 104 mmol/L (98-107) 01/03/24 07:41
Carbon Dioxide 26 mmol/L (22-30) 01/03/24 07:41
BUN 14 mg/dl (9-20) 01/03/24 07:41
Creatinine 0.9 mg/dL (0.7-1.3) 01/03/24 07:41
eGFR > 60.00 01/03/24 07:41
Glucose 108 mg/dl (70-99) H 01/03/24 07:41
Calcium 9.3 mg/dl (8.4-10.2) 01/03/24 07:41
Albumin Cancelled 01/01/24 14:03
Physical Exam
-
Vital Signs:
Vital Signs
Temp Pulse Resp BP Pulse Ox
98.0 F 71 16 172/99 96
01/03/24 11:05 01/03/24 11:05 01/03/24 11:05 01/03/24 11:05 01/03/24 11:05
Cardiovascular:: Regular rate and rhythm
Respiratory:: Bilateral: CTA
Lung Excursion:: Normal
Abdomen:: Nontender and Soft
Extremity Edema:: None: Bilateral:
Ro Catheter: No
--- NOTE | 2024-01-03 10:59 | CM ---
Pt seen at bedside. Physicians continuing work up
Pending d/c recommendations.
Plan: Home with needs anticipated
[2024-01-03 16:15] LABS: Iron 87 ug/dl (49-181)
[2024-01-03 16:25] LABS: Percent Saturation 29 % (20-50); Total Iron Binding Capacity 295 ug/dl (261-462)
[2024-01-03] MEDS: LOVENOX 40 MG SC (18:12)
[2024-01-03 18:36] LABS: Folate 5.5 ng/ml (2.76-20); Vitamin B12 302 pg/ml (239-931)
[2024-01-04] VITALS (10 sets, daily range): BP systolic 142–172; BP diastolic 79–118; BMI 43.8
[2024-01-04] MEDS: VITAMIN B-12 1000 MCG PO (07:47)
--- NOTE | 2024-01-04 07:47 | W.PN.HOSP.TC ---
Today's Communication/Plan
-
cont blood pressure control as per nephro
start claritin for nasal congestion
ativan prn as per Psych
Assessment / Plan
Assessment / Plan
Physical Exam
General: Well Developed, Well Nourished, No Apparent Distress and Morbidly Obese
HEENT: Normocephalic, Atraumatic and Moist Mucous Membranes
Respiratory: Clear to Auscultation
Cardiac: Regular Rhythm and S1/S2; Negative Murmur, Rub or Gallop
GI: Soft, Nontender, Nondistended and Normal Bowel Sounds; Negative Organomegaly
Musculoskeletal: No Clubbing, No Cyanosis and No Edema
Skin: Negative Rash
Neuro: Awake, Alert, Oriented, AO x 3, No Motor Deficits and Nonfocal/Grossly Intact
Psych: Calm
A/P: Patient is a 58y M with PMH significant for HTN and obesity who presents to ED with uncontrolled hypertension.
Uncontrolled Hypertension
- Continue current medications + IV hydralazine as needed for very high BP.
- Appreciate Nephrology evaluation.
- Pursue evaluation for secondary causes of hypertension. Catecholamine, metanephrine level pending.
- Note that patient has ZOFIA and is intolerant of PAP therapy - this is likely contributing to some degree.
- Labetalol dose increased to 300 mg twice daily. Continue with Diovan 320 mg daily. Aldactone 25 mg twice daily, hydralazine increased to 100 mg 3 times daily and clonidine 0.2 mg twice daily.
- CTA renal appreciated no renal artery stenosis
-Follow up ECHO
Blood Pressure Asymmetry btwn arms (right readings increased compared to left)
eventual CT angio chest to further evaluate minimizing contras exposure with recent CT abd
History of Non-Ischemic Cardiomyopathy
- Last Echo in system (2019) showed normal / recovered EF.
- repeat ECHO appreciated no significant change
Morbid Obesity
ZOFIA not on PAP Therapy
- Affects all aspects of care including uncontrolled HTN.
- Encourage continued efforts at weight loss - note 40 lbs weight loss since August.
- Would likely benefit from some form of ZOFIA management and would consider further OP follow-up in that regard.
Dry Mouth
-possible side effect clonidine
-possible symptomatic B12 deficiency (B12 low normal) supplementation started
Nasal Congestion 2/2 seasonal allergies
-Claritin started
-patient counseled to avoid thi or other OTC medications containing pseudoephedrine as will likely exacerbate hypertension
Anxiety
-patient endorses significant anxiety, stressors at work
-Psych eval appreciated prn ativan outpt follow up encouraged
DVT Prophylaxis: Lovenox
Code Status: Full
I spent a total of 50 minutes with the patient or on the floor. More than 50% of this time involved counseling and coordination of care.
Anticipated Discharge: 24 - 48 hours
Subjective/Interval History
-
Date of Service: January 04, 2024
no acute distress. Dry mouth persists but seems improved per patient.
Objective Data
-
Labs:
Laboratory Results
01/04/24
06:03
Sodium Pending
Potassium Pending
Chloride Pending
Carbon Dioxide Pending
BUN Pending
Creatinine Pending
Glucose Pending
Calcium Pending
Vital Signs:
Vital Signs
Temp Pulse Resp BP Pulse Ox
97.3 F 68 16 166/118 98
01/04/24 07:31 01/04/24 07:31 01/04/24 07:31 01/04/24 07:31 01/04/24 07:31
I&O
01/03/24 01/04/24 01/05/24
06:59 06:59 06:59
Intake Total 1460 / 1460 720 / 720
Balance 1460 / 1460 720 / 720
[2024-01-04] MEDS: TRANDATE 300 MG PO ×2 (07:48→20:22)
[2024-01-04] MEDS: CATAPRES 0.2 MG PO ×2 (07:48→20:22)
[2024-01-04] MEDS: APRESOLINE 50 MG PO (07:48)
[2024-01-04] MEDS: ALDACTONE 25 MG PO ×2 (07:48→13:47)
[2024-01-04] MEDS: DIOVAN 320 MG PO (07:50)
--- NOTE | 2024-01-04 07:58 | PN.CDI ---
CDI
- -
CDI:
Physician Documentation Request
Admit Date: 01/01/24 15:02
Dear Doctor Pantera,
Please review the following and provide your response in the progress notes.
Clinical Indicators:
- 01/02 PN 'Uncontrolled Hypertension'
- 01/02 Nephrology 'Given his multi drug resistant hypertension it is feasible that he could have a secondary component to his hypertension'
- Intermittent systolic BP >180
- IV Hydralazine x 3
Selected Entries
01/01/24
10:25 01/01/24
14:21 01/01/24
18:32
Blood pressure 190/114 180/100 188/113
01/02/24
03:11 01/02/24
20:39 01/03/24
07:46
Blood pressure 188/111 187/110 199/121
Please clarify which is a more accurate diagnosis reflecting the type and acuity of the documented hypertension:
Essential primary hypertension
Hypertensive Urgency - B/P is severely elevated (systolic > or = to 180 or diastolic > or = to 110) but there is no associated organ damage. Symptoms may include: headache, shortness of breath, nosebleeds, severe anxiety. Treatment usually consists
of addition to or adjusting of oral medications and does not generally necessitate hospitalization.
Hypertensive Emergency - B/P is severely elevated (systolic > or = to 180 or diastolic > or = to 110) but can occur at lower levels especially in patients who did not previously have high B/P. There is usually associated organ damage. Symptoms may
include: memory loss, LOC, CVA, UT, angina, renal failure, pulmonary edema. Generally requires more aggressive treatment and a hospitalization.
Hypertensive Crisis - an acute elevation in B/P that can lead to organ damage. Broad term that is further differentiated to include urgency or emergency based on presence of organ damage.
Other (please specify)
Use of terms such as suspected, likely, concern for, or probable (associated with a specific diagnosis that is being evaluated, monitored, or treated as if it exists) are acceptable and can be coded in the inpatient setting, when documented at the
time of discharge.
Thank you,
Ryan Gonzalez RN
CDI Specialist
Please use your independent medical judgment in providing your response.
[2024-01-04 08:35] LABS: Blood Urea Nitrogen 15 mg/dl (9-20); Carbon Dioxide 27 mmol/L (22-30); Chloride 103 mmol/L (98-107); Estimated Creatinine Clearance 114 ml/min; Glucose 94 mg/dl (70-99); Magnesium 2.2 mg/dl (1.6-2.3); Phosphorus 3.7 mg/dl (2.5-4.5); Potassium 3.5 mmol/L (3.5-5.1); Sodium 144 mmol/L (135-145); eGFR > 60.00
[2024-01-04] MEDS: APRESOLINE 10 MG IV (12:18)
[2024-01-04] MEDS: CLARITIN 10 MG PO (13:47)
--- NOTE | 2024-01-04 15:05 | CARDSERVLU ---
Echocardiogram with [facility] completed after protocol screening completed. Allergies verified.
Patent IV site: _Rt AC____
IV site flushed with 0.9% NaCl pre and post administration.
Diluted bolus method utilized to enhance visualization of ventricular garibay.
Total volume given: 4.0__ mL
Patient tolerated all procedures well without complications.
--- NOTE | 2024-01-04 17:20 | CS.PSYCHR ---
Consult Summary - Psychiatry
-
Pt is a 58 yo male admitted with hypertension, BP elevated for the past couple weeks despite multi-drug antihypertensive regimen. Psychiatry asked to assess regarding possible contribution of anxiety. Pt asks if he could have 'internalized'
anxiety. He does not have any history of anxiety or treatment for mental health issues. He had some therapy during his divorce, but did not find it helpful. He does not endorse the usual symptoms of generalized anxiety. Pt denies excess worry or
difficulty sleeping. Pt c/o feeling uncomfortable/ bloated since on Ozempic started in August. Pt also c/o retrograde ejaculation from the combination of antihypertensive agents. Pt reports having a high-pressure job, financial stress with 3 dtrs-
youngest 16 and the older dtrs going to college. Pt has managed/coped well with his dtrs' past mental health issues. Pt states he is very happy with his girlfriend of the past 15 months. He states his father had health problems, came to for
many years, and ultimately here in 2009, so pt associates with illness and . Pt states he was doing better overall prior to the pandemic, had lost significant weight walking and going to the gym, also went out with his friends to watch
sports and drink socially. He feels most relaxed when he and girlfriend to out to dinner and he has one drink.
Psych Hx: denies previous treatment. No history of anxiety medication
SH: with 3 dtrs, lives with girlfriend. 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 Denies alcohol abuse.
MSE: alert, oriented, calm, cooperative, talkative/engaging. Pt sitting on side of bed, in no acute distress. Affect is full/appropriate, mood is stable. Pt shows no overt signs of anxiety/tension. Speech fluent/coherent, thought goal-directed.
Insight good
Imp: Unspecified situational anxiety; pt does not present symptoms of an actual anxiety disorder; pt has typical life stressors, with some anxiety regarding his medical issues- not enough to explain his degree of elevated BP
Rec: pt encouraged to consider outpatient therapy. Will order low dose of Ativan prn while here in hospital
will follow peripherally
--- NOTE | 2024-01-04 17:44 | W.PN.NEPH.PH ---
Today's Communication / Plan
-
uptitrate meds as stated in plan
Assessment/Plan
-
Impression:
Uncontrolled HTN
Obesity
DM
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
HL
Asthma
History of hypokalemia
Plan:
Uncontrolled HTN (asymptomatic)
-Given his multi drug resistant hypertension it is feasible that he could have a secondary component to his hypertension, compliant with CPAP
-Lab work reviewed from 12/28/2023 revealed normal creatinine of 0.9 and potassium level of 3.3
increase Aldactone to 50 mg twice a day as there may be a hyperaldosterone component given his hypokalemia and resistant hypertension
pending plasma catecholamines serum metanephrine levels
increase hydralazine to 100mg TID too
renal artery CT angiogram negative for renal artery stenosis
We likely add procardia vs HCTZ later today if BP remains high
BP variation in both arms today per nursing, echo done today shows mild to mod VH, PAP 40mm hg , known h/o ZOFIA
if variation persists likely get CT chest angio to r/o subclavian disease
cont Labetalol, clonidine and ARB
currently he feels stomach upset with all meds and also mild constipation -bowel regimen as needed
psych also follows with concern of anxiety
detailed discussion with pt
-
-
Date of Service: January 04, 2024
CC / HPI / ROS
-
Chief Complaint:
Uncontrolled hypertension
History of Present Illness:
Blood pressure improving today with uptitration of meds
there is likely BP variation from right o left, right reading high
no fever, cr 1, k 3.5
Review of Systems:
No evidence of chest pain shortness of breath headache or visual disturbance
Labs
-
Labs:
WBC 7.9 10^3/uL (4.8-10.8) 01/02/24 06:59
RBC 5.16 10^6/uL (4.70-6.10) 01/02/24 06:59
Hgb 14.7 g/dL (13.0-18.0) 01/02/24 06:59
Hct 42.6 % (39.0-52.0) 01/02/24 06:59
Plt Count 197 10^3/uL (130-400) 01/02/24 06:59
Sodium 144 mmol/L (135-145) 01/04/24 06:03
Potassium 3.5 mmol/L (3.5-5.1) 01/04/24 06:03
Chloride 103 mmol/L (98-107) 01/04/24 06:03
Carbon Dioxide 27 mmol/L (22-30) 01/04/24 06:03
BUN 15 mg/dl (9-20) 01/04/24 06:03
Creatinine 1.0 mg/dL (0.7-1.3) 01/04/24 06:03
eGFR > 60.00 01/04/24 06:03
Glucose 94 mg/dl (70-99) 01/04/24 06:03
Calcium 9.0 mg/dl (8.4-10.2) 01/04/24 06:03
Phosphorus 3.7 mg/dl (2.5-4.5) 01/04/24 06:03
Albumin Cancelled 01/01/24 14:03
Physical Exam
-
Vital Signs:
Vital Signs
Temp Pulse Resp BP Pulse Ox
97.7 F 72 16 148/96 98
01/04/24 15:19 01/04/24 15:19 01/04/24 15:19 01/04/24 15:19 01/04/24 15:19
Cardiovascular:: Regular rate and rhythm
Respiratory:: Bilateral: CTA
Lung Excursion:: Normal
Abdomen:: Nontender and Soft
Extremity Edema:: None: Bilateral:
Ro Catheter: No
[2024-01-04] MEDS: APRESOLINE 100 MG PO ×2 (17:47→22:09)
[2024-01-04] MEDS: LOVENOX 40 MG SC (17:49)
[2024-01-04] MEDS: ALDACTONE 50 MG PO (20:21)
[2024-01-05] VITALS (9 sets, daily range): BP systolic 124–179; BP diastolic 70–111; BMI 43.6
[2024-01-05 06:35] LABS: Blood Urea Nitrogen 15 mg/dl (9-20); Calcium 9.4 mg/dl (8.4-10.2); Carbon Dioxide 28 mmol/L (22-30); Chloride 105 mmol/L (98-107); Estimated Creatinine Clearance > 125 ml/min; Glucose 102 mg/dl (70-99); Magnesium 2.2 mg/dl (1.6-2.3); Phosphorus 3.8 mg/dl (2.5-4.5); Sodium 143 mmol/L (135-145); eGFR > 60.00
--- NOTE | 2024-01-05 07:16 | W.PN.HOSP.TC ---
Today's Communication/Plan
-
check CTA chest BP asymmetry btwn arms
cont blood pressure control as per nephro
discontinue claritin, no significant benefit noted, concern causing lightheadedness (though this may also be side effect of improved blood pressure control)
Assessment / Plan
Assessment / Plan
Physical Exam
General: Well Developed, Well Nourished, No Apparent Distress and Morbidly Obese
HEENT: Normocephalic, Atraumatic and Moist Mucous Membranes
Respiratory: Clear to Auscultation
Cardiac: Regular Rhythm and S1/S2; Negative Murmur, Rub or Gallop
GI: Soft, Nontender, Nondistended and Normal Bowel Sounds; Negative Organomegaly
Musculoskeletal: No Clubbing, No Cyanosis and No Edema
Skin: Negative Rash
Neuro: Awake, Alert, Oriented, AO x 3, No Motor Deficits and Nonfocal/Grossly Intact
Psych: Calm
A/P: Patient is a 58y M with PMH significant for HTN and obesity who presents to ED with uncontrolled hypertension.
Uncontrolled Hypertension
- Continue current medications + IV hydralazine as needed for very high BP.
- Appreciate Nephrology evaluation.
- Pursue evaluation for secondary causes of hypertension. Catecholamine, metanephrine level pending.
- Note that patient has ZOFIA and is intolerant of PAP therapy - this is likely contributing to some degree.
- Labetalol dose increased to 300 mg twice daily. Continue with Diovan 320 mg daily. Aldactone gradually increased from 25 mg to 75 mg twice daily, hydralazine increased to 100 mg 3 times daily and cont clonidine 0.2 mg twice daily.
- CTA renal appreciated no renal artery stenosis
-ECHO appreciated no significant change from prior ECHO 2019
Blood Pressure Asymmetry btwn arms (>10 mmHg difference in readings)
- checking CT angio chest
History of Non-Ischemic Cardiomyopathy
- Last Echo in system (2019) showed normal / recovered EF.
- repeat ECHO appreciated no significant change
Morbid Obesity BMI>40
ZOFIA not on PAP Therapy
- Affects all aspects of care including uncontrolled HTN.
- Encourage continued efforts at weight loss - note 40 lbs weight loss since August.
- Would likely benefit from some form of ZOFIA management and would consider further OP follow-up in that regard.
Dry Mouth
-possible side effect clonidine
-possible symptomatic B12 deficiency (B12 low normal) supplementation started
Nasal Congestion 2/2 seasonal allergies
-Claritin started discontinued due to concern side effect (patient feeling 'woozy') no significant benefit noted with regards to nasal congestion
-patient counseled to avoid thi or other OTC medications containing pseudoephedrine as will likely exacerbate hypertension
Anxiety
-patient endorses significant anxiety, stressors at work
-Psych eval appreciated prn ativan, outpt follow up encouraged
DVT Prophylaxis: Lovenox
Code Status: Full
I spent a total of 50 minutes with the patient or on the floor. More than 50% of this time involved counseling and coordination of care.
Anticipated Discharge: 24 - 48 hours
Subjective/Interval History
-
Date of Service: January 05, 2024
Seen and examined at bedside in no acute distress. Reports feeling 'woozy' generalized body aches.
Objective Data
-
Labs:
Laboratory Results
01/05/24
05:24
Sodium 143
Potassium 4.0
Chloride 105
Carbon Dioxide 28
BUN 15
Creatinine 0.9
Glucose 102 H
Calcium 9.4
Vital Signs:
Vital Signs
Temp Pulse Resp BP Pulse Ox
97.8 F 70 18 146/84 100
01/05/24 03:07 01/05/24 03:07 01/05/24 03:07 01/05/24 03:07 01/05/24 03:07
I&O
01/04/24 01/05/24 01/06/24
06:59 06:59 06:59
Intake Total 720 / 720 640 / 640
Balance 720 / 720 640 / 640
[2024-01-05] MEDS: TRANDATE 300 MG PO ×2 (07:59→19:40)
[2024-01-05] MEDS: DIOVAN 320 MG PO (08:00)
[2024-01-05] MEDS: CATAPRES 0.2 MG PO ×2 (08:04→19:40)
[2024-01-05] MEDS: VITAMIN B-12 1000 MCG PO (08:04)
[2024-01-05] MEDS: CLARITIN 10 MG PO (08:04)
[2024-01-05] MEDS: ALDACTONE 50 MG PO (08:04)
[2024-01-05] MEDS: APRESOLINE 100 MG PO ×3 (08:05→21:57)
[2024-01-05 14:05] LABS: Glycohemoglobin (HgbA1c) 5.5 % (4.0-5.6)
--- NOTE | 2024-01-05 14:34 | CM ---
Chart reviewed: No new changes.
Psych following peripherally for support surrounding anxiety
CM will cont. to follow for d/c planning needs
Plan: Home with poss. needs for OP vs. VN
--- NOTE | 2024-01-05 15:15 | W.PN.UPDATE ---
Update Note
Progress Note Update
patient seen chart reviewed. discussed w nursing. female friend in the room. patient saw dr persaud yesterday. at issue whether anxiety was contributing patient's difficult to control hypertension. there are indeed stressors in patient's life
which he freely mentioned....work, side effects from ozempic (his theory is that ozempic is interfering with the metabolismo of his antihypertensive drugs..he points out that now that it is in wider usage, unforeseen effects of this drug may come to
light), side effects of antihypertensives, psych issues w kids, marital strife, stressful job which of course can contribute to anxiety however he has never felt he was in need of mental health rx and still does not. the reality is that he is
very overweight (he said he has lost forty lbs but it is clear he still has a ways to go) and he is not very active bc of his spinal stenosis both of which are risk factors for difficult to rx hypertension. we talked about the use of meditation,
exercising in a pool which takes weight off spine, being in green space which in itself is conducive to reducing stress. we also talked about use of bzp not recommended given addiction issues and chronicity of this issue. psych will sign off.
please call us if you would like us to return.
--- NOTE | 2024-01-05 15:57 | W.PN.NEPH.PH ---
Today's Communication / Plan
-
titrate up aldactone to 75mg BID
for CT angiogram of upper extremtities today
Assessment/Plan
-
Impression:
Uncontrolled HTN
Obesity
DM
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
HL
Asthma
History of hypokalemia
Plan:
Uncontrolled HTN (asymptomatic)
-Given his multi drug resistant hypertension it is feasible that he could have a secondary component to his hypertension, compliant with CPAP
-Lab work reviewed from 12/28/2023 revealed normal creatinine of 0.9 and potassium level of 3.3
increase Aldactone to 75 mg twice a day as there may be a hyperaldosterone component given his hypokalemia and resistant hypertension
pending plasma catecholamines serum metanephrine levels
on hydralazine to 100mg TID
renal artery CT angiogram negative for renal artery stenosis, adrenal glands without adenomas
We likely add procardia vs HCTZ later today if BP remains high
BP variation in both arms today per nursing, echo done today shows mild to mod VH, PAP 40mm hg , known h/o ZOFIA
for CT chest angio to r/o subclavian disease today
continue Labetalol, clonidine and ARB
currently he feels stomach upset with all meds and also mild constipation -bowel regimen as needed
psych also follows with concern of anxiety
detailed discussion with pt
-
-
Date of Service: January 05, 2024
CC / HPI / ROS
-
Chief Complaint:
Uncontrolled hypertension
History of Present Illness:
Blood pressure improving today with uptitration of meds , then spiked to 178 this afternoon
there is likely BP variation from right o left, right reading high
Review of Systems:
No evidence of chest pain shortness of breath headache or visual disturbance
Labs
-
Labs:
WBC 7.9 10^3/uL (4.8-10.8) 01/02/24 06:59
RBC 5.16 10^6/uL (4.70-6.10) 01/02/24 06:59
Hgb 14.7 g/dL (13.0-18.0) 01/02/24 06:59
Hct 42.6 % (39.0-52.0) 01/02/24 06:59
Plt Count 197 10^3/uL (130-400) 01/02/24 06:59
Sodium 143 mmol/L (135-145) 01/05/24 05:24
Potassium 4.0 mmol/L (3.5-5.1) 01/05/24 05:24
Chloride 105 mmol/L (98-107) 01/05/24 05:24
Carbon Dioxide 28 mmol/L (22-30) 01/05/24 05:24
BUN 15 mg/dl (9-20) 01/05/24 05:24
Creatinine 0.9 mg/dL (0.7-1.3) 01/05/24 05:24
eGFR > 60.00 01/05/24 05:24
Glucose 102 mg/dl (70-99) H 01/05/24 05:24
Calcium 9.4 mg/dl (8.4-10.2) 01/05/24 05:24
Phosphorus 3.8 mg/dl (2.5-4.5) 01/05/24 05:24
Albumin Cancelled 01/01/24 14:03
Physical Exam
-
Vital Signs:
Vital Signs
Temp Pulse Resp BP Pulse Ox
97.7 F 87 16 179/107 98
01/05/24 15:26 01/05/24 15:26 01/05/24 15:26 01/05/24 15:27 01/05/24 15:27
Cardiovascular:: Regular rate and rhythm
Respiratory:: Bilateral: CTA
Lung Excursion:: Normal
Abdomen:: Nontender and Soft
Bowel Sounds:: Normal
Extremity Edema:: None: Bilateral:
[2024-01-05] MEDS: LOVENOX 40 MG SC (18:00)
[2024-01-05] MEDS: ALDACTONE 75 MG PO (19:40)
[2024-01-06 03:20] VITALS: BP 152/78
--- NOTE | 2024-01-06 04:02 | PTCARENOTE ---
Patient refused 2300 VS.
[2024-01-06 06:42] LABS: Blood Urea Nitrogen 15 mg/dl (9-20); Calcium 9.4 mg/dl (8.4-10.2); Carbon Dioxide 28 mmol/L (22-30); Chloride 104 mmol/L (98-107); Estimated Creatinine Clearance 114 ml/min; Glucose 112 mg/dl (70-99); Magnesium 2.2 mg/dl (1.6-2.3); Phosphorus 4.3 mg/dl (2.5-4.5); Potassium 4.1 mmol/L (3.5-5.1); Sodium 144 mmol/L (135-145); eGFR > 60.00
[2024-01-06 07:00] VITALS: BP 187/99
--- NOTE | 2024-01-06 07:28 | W.PN.HOSP.TC ---
Today's Communication/Plan
-
cont bp control as per nephro
[address] abd/pelvis w/wo contrast dedicated exam Left Adrenal
cont bowel regimen
Assessment / Plan
Assessment / Plan
Physical Exam
General: Well Developed, Well Nourished, No Apparent Distress and Morbidly Obese
HEENT: Normocephalic, Atraumatic and Moist Mucous Membranes
Respiratory: Clear to Auscultation
Cardiac: Regular Rhythm and S1/S2; Negative Murmur, Rub or Gallop
GI: Soft, Nontender, Nondistended and Normal Bowel Sounds; Negative Organomegaly
Musculoskeletal: No Clubbing, No Cyanosis and No Edema
Skin: Negative Rash
Neuro: Awake, Alert, Oriented, AO x 3, No Motor Deficits and Nonfocal/Grossly Intact
Psych: Calm
A/P: Patient is a 58y M with PMH significant for HTN and obesity who presents to ED with uncontrolled hypertension.
Uncontrolled Hypertension
Hypertensive urgency
- Continue current medications + IV hydralazine as needed for very high BP.
- Appreciate Nephrology evaluation.
- Catecholamine, metanephrine level wnl, checking 24 hour urine metanephrine
- As per nephro Labetalol dose increased to 300 mg TID. Continue with Diovan 320 mg daily. Aldactone gradually increased from 25 mg to 75 mg twice daily, hydralazine increased to 100 mg 3 times daily but later reduced to 50 mg and clonidine 0.2
mg twice daily continued
- CTA renal appreciated no renal artery stenosis
- ECHO appreciated no significant change from prior ECHO 2019
Blood Pressure Asymmetry btwn arms (>10 mmHg difference in readings)
- CT angio chest appreciated no aneurysm or dissection, subclavian arteries not well visualized CTA of neck recommended for further evaluation
-Left Adrenal nodule 1.5 cm concerning for malignancy noted
#Left Adrenal Nodule 1.[address]/pelvis w/ and w/o contrast dedicated exam left adrenal pending
History of Non-Ischemic Cardiomyopathy
- Last Echo in system (2019) showed normal / recovered EF.
- repeat ECHO appreciated no significant change
Morbid Obesity BMI>40
ZOFIA not on PAP Therapy
- Affects all aspects of care including uncontrolled HTN.
- Encourage continued efforts at weight loss - note 40 lbs weight loss since August.
- Would likely benefit from some form of ZOFIA management and would consider further OP follow-up in that regard.
Dry Mouth
-possible side effect clonidine
-possible symptomatic B12 deficiency (B12 low normal) supplementation started
Nasal Congestion 2/2 seasonal allergies
-Claritin started discontinued due to concern side effect (patient feeling 'woozy') no significant benefit noted with regards to nasal congestion
-patient counseled to avoid thi or other OTC medications containing pseudoephedrine as will likely exacerbate hypertension
Anxiety
-patient endorses significant anxiety, stressors at work
-Psych eval appreciated prn ativan, outpt follow up encouraged
Constipation
-Bowel Regimen
Insomnia
-melatonin prn
DVT Prophylaxis: Lovenox
Code Status: Full
I spent a total of 50 minutes with the patient or on the floor. More than 50% of this time involved counseling and coordination of care.
Anticipated Discharge: 24 - 48 hours
Subjective/Interval History
-
Date of Service: January 06, 2024
Objective Data
-
Labs:
Laboratory Results
01/06/24
05:42
Sodium 144
Potassium 4.1
Chloride 104
Carbon Dioxide 28
BUN 15
Creatinine 1.0
Glucose 112 H
Calcium 9.4
Vital Signs:
Vital Signs
Temp Pulse Resp BP Pulse Ox
98.3 F 69 18 152/78 98
01/06/24 03:20 01/06/24 03:20 01/06/24 03:20 01/06/24 03:20 01/06/24 03:20
I&O
01/05/24 01/06/24 01/07/24
06:59 06:59 06:59
Intake Total 640 / 640 1200 / 1200 360 / 360
Balance 640 / 640 1200 / 1200 360 / 360
[2024-01-06] MEDS: DIOVAN 320 MG PO (07:48)
[2024-01-06] MEDS: APRESOLINE 100 MG PO ×2 (07:49→15:49)
[2024-01-06] MEDS: ALDACTONE 75 MG PO ×2 (07:49→19:54)
[2024-01-06] MEDS: TRANDATE 300 MG PO ×2 (07:49→21:56)
[2024-01-06] MEDS: VITAMIN B-12 1000 MCG PO (07:49)
[2024-01-06] MEDS: CATAPRES 0.2 MG PO ×2 (07:49→19:54)
[2024-01-06] MEDS: MIRALAX 17 GRAMS PO (10:32)
[2024-01-06 11:00] VITALS: BP 120/70
--- NOTE | 2024-01-06 12:33 | CM ---
Chart reviewed. CM TT hospitalist re pt d/c
Hospitalist stated pt may d/c today or tomorrow pending surgery nephro assessment.
Plan: Home with needs vs home with no needs
--- NOTE | 2024-01-06 13:08 | W.PN.NEPH.PH ---
Today's Communication / Plan
-
Review case with general surgery re: adrenal lesion
Assessment/Plan
-
Impression:
Uncontrolled HTN
Obesity
DM
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
HL
Asthma
History of hypokalemia
Plan:
Uncontrolled HTN (asymptomatic)
-Given his multi drug resistant hypertension it is feasible that he could have a secondary component to his hypertension, compliant with CPAP
-Lab work reviewed from 12/28/2023 revealed normal creatinine of 0.9 and potassium level of 3.3
increased Aldactone to 75 mg twice a day as there may be a hyperaldosterone component given his hypokalemia and resistant hypertension
pending plasma catecholamines serum metanephrine levels were normal
. Will check 24-hour urine catecholamine
on hydralazine to 100mg TID
renal artery CT angiogram negative for renal artery stenosis, adrenal glands without adenomas but CT scan of chest revealed 1.5 cm adrenal suspicious lesion with enhancement: concern for pheochromocytoma
Will have general surgery review abdominal CT scan to address adrenal lesion
BP variation in both arms today per nursing, echo done today shows mild to mod VH, PAP 40mm hg , known h/o ZOFIA
s/p CT chest angio to r/o subclavian disease done without significant vascular abnormalities
continue Labetalol, clonidine and ARB
currently he feels stomach upset with all meds and also mild constipation -bowel regimen as needed
detailed discussion with pt
-
-
Date of Service: January 06, 2024
CC / HPI / ROS
-
Chief Complaint:
Uncontrolled hypertension
History of Present Illness:
Blood pressure remains highly unstable
there is likely BP variation from right o left, right reading high
Review of Systems:
No evidence of chest pain shortness of breath headache or visual disturbance
Labs
-
Labs:
WBC 7.9 10^3/uL (4.8-10.8) 01/02/24 06:59
RBC 5.16 10^6/uL (4.70-6.10) 01/02/24 06:59
Hgb 14.7 g/dL (13.0-18.0) 01/02/24 06:59
Hct 42.6 % (39.0-52.0) 01/02/24 06:59
Plt Count 197 10^3/uL (130-400) 01/02/24 06:59
Sodium 144 mmol/L (135-145) 01/06/24 05:42
Potassium 4.1 mmol/L (3.5-5.1) 01/06/24 05:42
Chloride 104 mmol/L (98-107) 01/06/24 05:42
Carbon Dioxide 28 mmol/L (22-30) 01/06/24 05:42
BUN 15 mg/dl (9-20) 01/06/24 05:42
Creatinine 1.0 mg/dL (0.7-1.3) 01/06/24 05:42
eGFR > 60.00 01/06/24 05:42
Glucose 112 mg/dl (70-99) H 01/06/24 05:42
Calcium 9.4 mg/dl (8.4-10.2) 01/06/24 05:42
Phosphorus 4.3 mg/dl (2.5-4.5) 01/06/24 05:42
Albumin Cancelled 01/01/24 14:03
Physical Exam
-
Vital Signs:
Vital Signs
Temp Pulse Resp BP Pulse Ox
97.7 F 69 17 120/70 98
01/06/24 11:00 01/06/24 11:00 01/06/24 11:00 01/06/24 11:00 01/06/24 11:00
Cardiovascular:: Regular rate and rhythm
Respiratory:: Bilateral: CTA
Lung Excursion:: Normal
Abdomen:: Nontender and Soft
Bowel Sounds:: Normal
Extremity Edema:: None: Bilateral:
[2024-01-06 15:00] VITALS: BP 198/122
[2024-01-06] MEDS: LOVENOX 40 MG SC (17:41)
[2024-01-06 19:45] VITALS: BP 155/89
[2024-01-06] MEDS: SENOKOT-S 1 TABLET PO (19:54)
[2024-01-06] MEDS: APRESOLINE 50 MG PO (21:56)
[2024-01-06 22:00] VITALS: BP 162/98
[2024-01-07 06:46] LABS: Blood Urea Nitrogen 18 mg/dl (9-20); Calcium 9.3 mg/dl (8.4-10.2); Carbon Dioxide 26 mmol/L (22-30); Chloride 104 mmol/L (98-107); Estimated Creatinine Clearance 104 ml/min; Glucose 99 mg/dl (70-99); Sodium 141 mmol/L (135-145); eGFR > 60.00
[2024-01-07 06:58] LABS: Cortisol, Random 2.5 ug/dl
[2024-01-07 07:30] VITALS: BP 180/101
--- NOTE | 2024-01-07 07:31 | W.PN.HOSP.TC ---
Today's Communication/Plan
-
cont blood pressure control as per nephro
CT abd/pelvis w/wo contrast dedicated examination Left adrenal
keep Tele d/t intermittent need prn IV antihypertensive
Assessment / Plan
Assessment / Plan
Physical Exam
General: Well Developed, Well Nourished, No Apparent Distress and Morbidly Obese
HEENT: Normocephalic, Atraumatic and Moist Mucous Membranes
Respiratory: Clear to Auscultation
Cardiac: Regular Rhythm and S1/S2; Negative Murmur, Rub or Gallop
GI: Soft, Nontender, Nondistended and Normal Bowel Sounds; Negative Organomegaly
Musculoskeletal: No Clubbing, No Cyanosis and No Edema
Skin: Negative Rash
Neuro: Awake, Alert, Oriented, AO x 3, No Motor Deficits and Nonfocal/Grossly Intact
Psych: Calm
A/P: Patient is a 58y M with PMH significant for HTN and obesity who presents to ED with uncontrolled hypertension.
Uncontrolled Hypertension
Hypertensive urgency
- Continue current medications + IV hydralazine as needed for very high BP.
- Appreciate Nephrology evaluation.
- Catecholamine, metanephrine level wnl, checking 24 hour urine metanephrine
- As per nephro Labetalol dose increased to 300 mg TID. Continue with Diovan 320 mg daily. Aldactone gradually increased from 25 mg to 75 mg twice daily, hydralazine increased to 100 mg 3 times daily but later reduced to 50 mg and clonidine 0.2
mg twice daily continued
- CTA renal appreciated no renal artery stenosis
- ECHO appreciated no significant change from prior ECHO 2019
Blood Pressure Asymmetry btwn arms (>10 mmHg difference in readings)
- CT angio chest appreciated no aneurysm or dissection, subclavian arteries not well visualized CTA of neck recommended for further evaluation
-Left Adrenal nodule 1.5 cm concerning for malignancy noted
#Left Adrenal Nodule 1.[address]/pelvis w/ and w/o contrast dedicated exam left adrenal pending
History of Non-Ischemic Cardiomyopathy
- Last Echo in system (2019) showed normal / recovered EF.
- repeat ECHO appreciated no significant change
Morbid Obesity BMI>40
ZOFIA not on PAP Therapy
- Affects all aspects of care including uncontrolled HTN.
- Encourage continued efforts at weight loss - note 40 lbs weight loss since August.
- Would likely benefit from some form of ZOFIA management and would consider further OP follow-up in that regard.
Dry Mouth
-possible side effect clonidine
-possible symptomatic B12 deficiency (B12 low normal) supplementation started
Nasal Congestion 2/2 seasonal allergies
-Claritin started discontinued due to concern side effect (patient feeling 'woozy') no significant benefit noted with regards to nasal congestion
-patient counseled to avoid thi or other OTC medications containing pseudoephedrine as will likely exacerbate hypertension
Anxiety
-patient endorses significant anxiety, stressors at work
-Psych eval appreciated prn ativan, outpt follow up encouraged
Constipation
-Bowel Regimen
Insomnia
-melatonin prn
DVT Prophylaxis: Lovenox
Code Status: Full
I spent a total of 50 minutes with the patient or on the floor. More than 50% of this time involved counseling and coordination of care.
Anticipated Discharge: 24 - 48 hours
Subjective/Interval History
-
Date of Service: January 07, 2024
No acute distress, appears comfortable at this time. Reports overall feeling well.
Objective Data
-
Labs:
Laboratory Results
01/07/24
05:30
Sodium 141
Potassium 4.0
Chloride 104
Carbon Dioxide 26
BUN 18
Creatinine 1.1
Glucose 99
Calcium 9.3
Vital Signs:
Vital Signs
Temp Pulse Resp BP Pulse Ox
97.7 F 69 18 162/98 96
01/06/24 22:00 01/06/24 22:00 01/06/24 22:00 01/06/24 22:00 01/06/24 22:00
I&O
01/06/24 01/07/24 01/08/24
06:59 06:59 06:59
Intake Total 1200 / 1200 760 / 760
Balance 1200 / 1200 760 / 760
[2024-01-07] MEDS: APRESOLINE 50 MG PO ×3 (08:17→23:04)
[2024-01-07] MEDS: TRANDATE 300 MG PO ×3 (08:17→23:04)
[2024-01-07] MEDS: DIOVAN 320 MG PO (08:18)
[2024-01-07] MEDS: CATAPRES 0.2 MG PO ×2 (08:18→21:19)
[2024-01-07] MEDS: VITAMIN B-12 1000 MCG PO (08:19)
[2024-01-07] MEDS: MIRALAX 17 GRAMS PO (08:27)
[2024-01-07] MEDS: SENOKOT-S 1 TABLET PO ×2 (08:27→21:18)
[2024-01-07] MEDS: ALDACTONE 75 MG PO ×2 (08:32→21:19)
[2024-01-07 12:03] VITALS: BP 155/94
--- NOTE | 2024-01-07 16:25 | W.PN.NEPH.PH ---
Today's Communication / Plan
-
see plan
Assessment/Plan
-
Impression:
Uncontrolled HTN
Obesity
DM
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
HL
Asthma
History of hypokalemia
Plan:
Uncontrolled HTN (asymptomatic)
-Given his multi drug resistant hypertension it is feasible that he could have a secondary component to his hypertension, compliant with CPAP
-Lab work reviewed from 12/28/2023 revealed normal creatinine of 0.9 and potassium level of 3.3
increased Aldactone to 75 mg twice a day(01/05) as there may be a hyperaldosterone component given his hypokalemia and resistant hypertension
normal plasma catecholamines serum metanephrine levels, 24hr urine labs ordered for confirmation
renal artery CT angiogram negative for renal artery stenosis, adrenal glands without adenomas but CT scan of chest revealed 1.5 cm adrenal suspicious lesion with enhancement: concern for pheochromocytoma, repeat CT today pending report
case d/w general surgery on 01/05
BP variation in both arms today per nursing, echo shows mild to mod VH, PAP 40mm hg , known h/o ZOFIA
s/p CT chest angio showed no significant vascular abnormalities
continue Labetalol, clonidine, hydralazine and ARB
can uptirate hydralazine as needed
he previously on HCTZ prior May starting Ozempic, tolerated well
Ok to use flonase for nasal congestion/allergies
cortisol is low end-would repeat out pt
detailed discussion with pt, spoke with on phone
plan d/c tomorrow
we also reviewed possible 2nd opinion at [facility] as out pt
-
-
Date of Service: January 07, 2024
CC / HPI / ROS
-
Chief Complaint:
Uncontrolled hypertension
History of Present Illness:
Blood pressure remains highly unstable, specially in am prior getting meds
there is likely BP variation from right o left, right reading high
cr 1.1, ARR pending
Review of Systems:
No evidence of chest pain shortness of breath headache or visual disturbance
nasal and sinus congestion,
dry mouth from clonidine
Labs
-
Labs:
WBC 7.9 10^3/uL (4.8-10.8) 01/02/24 06:59
RBC 5.16 10^6/uL (4.70-6.10) 01/02/24 06:59
Hgb 14.7 g/dL (13.0-18.0) 01/02/24 06:59
Hct 42.6 % (39.0-52.0) 01/02/24 06:59
Plt Count 197 10^3/uL (130-400) 01/02/24 06:59
Sodium 141 mmol/L (135-145) 01/07/24 05:30
Potassium 4.0 mmol/L (3.5-5.1) 01/07/24 05:30
Chloride 104 mmol/L (98-107) 01/07/24 05:30
Carbon Dioxide 26 mmol/L (22-30) 01/07/24 05:30
BUN 18 mg/dl (9-20) 01/07/24 05:30
Creatinine 1.1 mg/dL (0.7-1.3) 01/07/24 05:30
eGFR > 60.00 01/07/24 05:30
Glucose 99 mg/dl (70-99) 01/07/24 05:30
Calcium 9.3 mg/dl (8.4-10.2) 01/07/24 05:30
Phosphorus 4.3 mg/dl (2.5-4.5) 01/06/24 05:42
Albumin Cancelled 01/01/24 14:03
Physical Exam
-
Vital Signs:
Vital Signs
Temp Pulse Resp BP Pulse Ox
97.6 F 65 16 155/94 97
01/07/24 12:03 01/07/24 12:03 01/07/24 12:03 01/07/24 12:03 01/07/24 12:03
Cardiovascular:: Regular rate and rhythm
Respiratory:: Bilateral: CTA
Lung Excursion:: Normal
Abdomen:: Nontender and Soft
Extremity Edema:: None: Bilateral:
Ro Catheter: No
[2024-01-07 16:30] VITALS: BP 192/112
[2024-01-07] MEDS: LOVENOX 40 MG SC (17:05)
[2024-01-07 18:34] LABS: 24 Hour Urine Total Volume 1800 ml
[2024-01-07 23:04] VITALS: BP 162/101
--- NOTE | 2024-01-08 07:37 | W.PN.HOSP.TC ---
Today's Communication/Plan
-
cont blood pressures control as per nephro, Procardia added bedtime
cont telemonitor prn IV hypertensives
bowel regimen
Assessment / Plan
Assessment / Plan
Physical Exam
General: Well Developed, Well Nourished, No Apparent Distress and Morbidly Obese
HEENT: Normocephalic, Atraumatic and Moist Mucous Membranes
Respiratory: Clear to Auscultation
Cardiac: Regular Rhythm and S1/S2; Negative Murmur, Rub or Gallop
GI: Soft, Nontender, Nondistended and Normal Bowel Sounds; Negative Organomegaly
Musculoskeletal: No Clubbing, No Cyanosis and No Edema
Skin: Negative Rash
Neuro: Aox3
Psych: Calm
A/P: Patient is a 58y M with PMH significant for HTN and obesity who presents to ED with uncontrolled hypertension.
Uncontrolled Hypertension
Hypertensive urgency
- Continue current medications + IV hydralazine as needed for very high BP.
- Appreciate Nephrology evaluation.
- Catecholamine, metanephrine level wnl, checking 24 hour urine metanephrine results pending
- As per nephro Labetalol dose increased to 300 mg TID. Continue with Diovan 320 mg daily. Aldactone gradually increased from 25 mg to 75 mg twice daily, hydralazine increased to 100 mg 3 times daily but later reduced to 50 mg and clonidine 0.2
mg twice daily continued, procardia 30 mg HS added
- CTA renal appreciated no renal artery stenosis
- ECHO appreciated no significant change from prior ECHO 2019
01/07 Patient/Family requested transfer to tertiary center, transfer request initiated with Carl awaiting call back, patient/family counseled tertiary centers will likely not accept unless there is a service they can provide that is not
available here.
Blood Pressure Asymmetry btwn arms (>10 mmHg difference in readings)
- CT angio chest appreciated no aneurysm or dissection, subclavian arteries not well visualized CTA of neck recommended for further evaluation
-Left Adrenal nodule 1.5 cm concerning for malignancy noted but ruled out w/ Left adrenal dedicated CT examination
Fatty Liver Disease noted on CT
History of Non-Ischemic Cardiomyopathy
- Last Echo in system (2019) showed normal / recovered EF.
- repeat ECHO appreciated no significant change
Morbid Obesity BMI>40
ZOFIA on CPAP [correction to prior documentation]
- Affects all aspects of care including uncontrolled HTN.
- Encourage continued efforts at weight loss - noted 40 lbs weight loss since August.
Dry Mouth
-likely side effect clonidine
-possible symptomatic B12 deficiency (B12 low normal) supplementation started
-ice chips symptoms relief recommended
Nasal Congestion 2/2 seasonal allergies
-Claritin started discontinued due to concern side effect (patient feeling 'woozy') no significant benefit noted with regards to nasal congestion
-patient counseled to avoid thi or other OTC medications containing pseudoephedrine as will likely exacerbate hypertension
-recommend Flonase outpt, not available inpt.
Anxiety
-patient endorses significant anxiety, stressors at work
-Psych eval appreciated prn ativan, outpt follow up encouraged
Constipation
-Bowel Regimen
Insomnia
-melatonin prn
DVT Prophylaxis: Lovenox
Code Status: Full
Discussed with patient, patient's significant other Tessa, patient's mother Sara, Nurse, and Nephrology
I spent a total of 50 minutes with the patient or on the floor. More than 50% of this time involved counseling and coordination of care.
Anticipated Discharge: 24 - 48 hours
Subjective/Interval History
-
Date of Service: January 08, 2024
No acute distress. Blood pressure remains elevated in morning improved following blood pressure medications.
Objective Data
-
Vital Signs:
Vital Signs
Temp Pulse Resp BP Pulse Ox
97.7 F 66 16 162/101 98
01/07/24 23:04 01/07/24 23:04 01/07/24 23:04 01/07/24 23:04 01/07/24 23:04
I&O
01/07/24 01/08/24 01/09/24
06:59 06:59 06:59
Intake Total 760 / 760 960 / 960 960 / 960
Output Total 1500 / 1500
Balance 760 / 760 -540 / -540 960 / 960
[2024-01-08 08:00] VITALS: BP 193/118
[2024-01-08] MEDS: DIOVAN 320 MG PO (08:45)
[2024-01-08] MEDS: APRESOLINE 50 MG PO ×3 (08:45→22:24)
[2024-01-08] MEDS: SENOKOT-S 1 TABLET PO ×2 (08:46→19:48)
[2024-01-08] MEDS: ALDACTONE 75 MG PO ×2 (08:46→19:48)
[2024-01-08] MEDS: TRANDATE 300 MG PO ×3 (08:46→22:24)
[2024-01-08] MEDS: VITAMIN B-12 1000 MCG PO (08:46)
[2024-01-08] MEDS: MIRALAX 17 GRAMS PO (08:46)
[2024-01-08] MEDS: CATAPRES 0.2 MG PO ×2 (08:46→19:48)
[2024-01-08 11:50] VITALS: BP 149/84
--- NOTE | 2024-01-08 14:12 | W.PN.NEPH.PH ---
Today's Communication / Plan
-
add procardia
Assessment/Plan
-
Impression:
Uncontrolled HTN
Obesity
DM
Hx of non ischemic [employer]
HL
Asthma
History of hypokalemia
Plan:
Uncontrolled HTN (asymptomatic)
-Given his multi drug resistant hypertension it is feasible that he could have a secondary component to his hypertension, compliant with CPAP
-Lab work reviewed from 12/28/2023 revealed normal creatinine of 0.9 and potassium level of 3.3
increased Aldactone to 75 mg twice a day(01/05) as there may be a hyperaldosterone component given his hypokalemia and resistant hypertension
normal plasma catecholamines serum metanephrine levels, 24hr urine labs ordered for confirmation
renal artery CT angiogram negative for renal artery stenosis, adrenal glands without adenomas but CT scan of chest revealed 1.5 cm adrenal lesion, CT abd repeat shows unlikely pheo with attenuation of 7 hounse bingham(pheo >10)
will await 24hr urine hormonal testing
s/p CT chest angio showed no significant vascular abnormalities
continue Labetalol, clonidine, hydralazine and ARB
can uptirate hydralazine as needed , add procardia tonight to help Am peaks
he previously on HCTZ prior May starting Ozempic, tolerated well
Ok to use flonase for nasal congestion/allergies
cortisol is low end-would repeat out pt
detailed discussion with pt and GF at bedside
they want to transfer to tertiary center which may not be indicated at this time , hospitalist [place] reaching out downtown
we also reviewed possible 2nd opinion at [place] as out pt
-
-
Date of Service: January 08, 2024
CC / HPI / ROS
-
Chief Complaint:
Uncontrolled hypertension
History of Present Illness:
Blood pressure remains highly unstable, specially in am prior getting meds
there is likely BP variation from right o left, right reading high
cr 1.1, ARR pending
Review of Systems:
No evidence of chest pain shortness of breath headache or visual disturbance
nasal and sinus congestion,
dry mouth from clonidine
COVID+all family members in last few weeks
Labs
-
Labs:
WBC 7.9 10^3/uL (4.8-10.8) 01/02/24 06:59
RBC 5.16 10^6/uL (4.70-6.10) 01/02/24 06:59
Hgb 14.7 g/dL (13.0-18.0) 01/02/24 06:59
Hct 42.6 % (39.0-52.0) 01/02/24 06:59
Plt Count 197 10^3/uL (130-400) 01/02/24 06:59
Sodium 141 mmol/L (135-145) 01/07/24 05:30
Potassium 4.0 mmol/L (3.5-5.1) 01/07/24 05:30
Chloride 104 mmol/L (98-107) 01/07/24 05:30
Carbon Dioxide 26 mmol/L (22-30) 01/07/24 05:30
BUN 18 mg/dl (9-20) 01/07/24 05:30
Creatinine 1.1 mg/dL (0.7-1.3) 01/07/24 05:30
eGFR > 60.00 01/07/24 05:30
Glucose 99 mg/dl (70-99) 01/07/24 05:30
Calcium 9.3 mg/dl (8.4-10.2) 01/07/24 05:30
Phosphorus 4.3 mg/dl (2.5-4.5) 01/06/24 05:42
Albumin Cancelled 01/01/24 14:03
Physical Exam
-
Vital Signs:
Vital Signs
Temp Pulse Resp BP Pulse Ox
98.0 F 66 18 149/84 95
01/08/24 11:50 01/08/24 11:50 01/08/24 11:50 01/08/24 11:50 01/08/24 11:50
Cardiovascular:: Regular rate and rhythm
Respiratory:: Bilateral: CTA
Lung Excursion:: Normal
Abdomen:: Nontender and Soft
Extremity Edema:: None: Bilateral:
Ro Catheter: No
[2024-01-08 15:46] LABS: COVID-19 Antigen Negative (Negative)
[2024-01-08 16:00] VITALS: BP 158/103
[2024-01-08] MEDS: LOVENOX 40 MG SC (17:54)
[2024-01-08 19:00] VITALS: BP 169/94
[2024-01-08] MEDS: PROCARDIA XL (EXTENDED RELEASE) 30 MG PO (22:25)
[2024-01-08 23:00] VITALS: BP 156/89; BP 164/100
[2024-01-09 06:33] LABS: Blood Urea Nitrogen 15 mg/dl (9-20); Calcium 9.4 mg/dl (8.4-10.2); Carbon Dioxide 24 mmol/L (22-30); Chloride 106 mmol/L (98-107); Estimated Creatinine Clearance 114 ml/min; Glucose 106 mg/dl (70-99); Magnesium 2.2 mg/dl (1.6-2.3); Phosphorus 3.7 mg/dl (2.5-4.5); Potassium 4.3 mmol/L (3.5-5.1); Sodium 143 mmol/L (135-145); eGFR > 60.00
[2024-01-09 07:01] LABS: Cortisol, Random 11.5 ug/dl
[2024-01-09 08:26] VITALS: BP 120/69; BP 140/80
[2024-01-09] MEDS: MIRALAX 17 GRAMS PO (08:29)
[2024-01-09] MEDS: VITAMIN B-12 1000 MCG PO (08:30)
[2024-01-09] MEDS: DIOVAN 320 MG PO (08:30)
[2024-01-09] MEDS: ALDACTONE 75 MG PO (08:30)
[2024-01-09] MEDS: SENOKOT-S PO ×2 (08:30→08:38)
[2024-01-09] MEDS: APRESOLINE 50 MG PO (08:31)
[2024-01-09] MEDS: TRANDATE 300 MG PO (08:31)
[2024-01-09] MEDS: CATAPRES 0.2 MG PO (08:31)
--- NOTE | 2024-01-09 08:47 | W.PN.HOSP.TC ---
Addendum entered and electronically signed by Thomas Mott MD 01/09/24 14:39:
BP control significantly improved.
Labetalol 300 mg TID reduced to BID
Hydralazine 50 mg TID reduced to BID
Original Note:
Today's Communication/Plan
-
Discharge
Assessment / Plan
Assessment / Plan
Physical Exam
General: Well Developed, Well Nourished, No Apparent Distress and Morbidly Obese
HEENT: Normocephalic, Atraumatic and Moist Mucous Membranes
Respiratory: Clear to Auscultation
Cardiac: Regular Rhythm and S1/S2; Negative Murmur, Rub or Gallop
GI: Soft, Nontender, Nondistended and Normal Bowel Sounds; Negative Organomegaly
Musculoskeletal: No Clubbing, No Cyanosis and No Edema
Skin: Negative Rash
Neuro: Aox3
Psych: Calm
A/P: Patient is a 58y M with PMH significant for HTN and obesity who presents to ED with uncontrolled hypertension.
Uncontrolled Hypertension
Hypertensive urgency
- Continue current medications + IV hydralazine as needed for very high BP.
- Appreciate Nephrology evaluation.
- Catecholamine, metanephrine level wnl, checking 24 hour urine metanephrine results pending
- As per nephro Labetalol dose increased to 300 mg TID. Continue with Diovan 320 mg daily. Aldactone gradually increased from 25 mg to 75 mg twice daily, hydralazine increased to 100 mg 3 times daily but later reduced to 50 mg and clonidine 0.2
mg twice daily continued, procardia 30 mg HS added
- CTA renal appreciated no renal artery stenosis
- ECHO appreciated no significant change from prior ECHO 2019
-BP control improved. Discussed with Nephrology, medically stable for discharge home with outpatient follow up recommendations.
Blood Pressure Asymmetry btwn arms (>10 mmHg difference in readings)
- CT angio chest appreciated no aneurysm or dissection, subclavian arteries not well visualized CTA of neck recommended for further evaluation
-Left Adrenal nodule 1.5 cm concerning for malignancy noted but ruled out w/ Left adrenal dedicated CT examination
-Outpt CTA neck and follow up with vascular recommended
Fatty Liver Disease noted on CT
History of Non-Ischemic Cardiomyopathy
- Last Echo in system (2019) showed normal / recovered EF.
- repeat ECHO appreciated no significant change
Morbid Obesity BMI>40
ZOFIA on CPAP [correction to prior documentation]
- Affects all aspects of care including uncontrolled HTN.
- Encourage continued efforts at weight loss - noted 40 lbs weight loss since August.
Dry Mouth
-likely side effect clonidine
-possible symptomatic B12 deficiency (B12 low normal) supplementation started
-ice chips symptoms relief recommended
Nasal Congestion 2/2 seasonal allergies
-Claritin started discontinued due to concern side effect (patient feeling 'woozy') no significant benefit noted with regards to nasal congestion
-patient counseled to avoid thi or other OTC medications containing pseudoephedrine as will likely exacerbate hypertension
-recommend Flonase outpt, not available inpt.
Anxiety
-patient endorses significant anxiety, stressors at work
-Psych eval appreciated prn ativan (has not required during stay), outpt follow up encouraged
Constipation
-Bowel Regimen
Insomnia
-melatonin prn (has not required during stay)
DVT Prophylaxis: Lovenox
Code Status: Full
Medically stable for discharge home with outpatient follow up recommendations.
Discussed with patient and Nephrology
Total Time Preparing Discharge __40____ minutes including examination of the patient, summary of the hospital stay, instructions for continuing care to all relevant caregivers; and preparation of discharge records, prescriptions, and referral forms
if necessary.
Anticipated Discharge: Today
Subjective/Interval History
-
Date of Service: January 09, 2024
Blood pressure control improved. Endorses intermittent lightheadedness on stand ambulation but tolerable. Denies new acute issues. Eager to go home.
Objective Data
-
Labs:
Laboratory Results
01/09/24
05:25
Sodium 143
Potassium 4.3
Chloride 106
Carbon Dioxide 24
BUN 15
Creatinine 1.0
Glucose 106 H
Calcium 9.4
Vital Signs:
Vital Signs
Temp Pulse Resp BP Pulse Ox
97.5 F 59 18 120/69 97
01/09/24 08:26 01/09/24 08:26 01/09/24 08:26 01/09/24 08:26 01/09/24 08:26
I&O
01/08/24 01/09/24 01/10/24
06:59 06:59 06:59
Intake Total 960 / 960 2840 / 2840
Output Total 1500 / 1500
Balance -540 / -540 2840 / 2840
[2024-01-09 12:01] VITALS: BP 119/82
--- NOTE | 2024-01-09 14:32 | W.PN.NEPH.PH ---
Today's Communication / Plan
-
see plan
Assessment/Plan
-
Impression:
Uncontrolled HTN
Obesity
DM
Hx of non ischemic [employer]
HL
Asthma
History of hypokalemia
Plan:
Uncontrolled HTN (asymptomatic)
-Given his multi drug resistant hypertension it is feasible that he could have a secondary component to his hypertension, compliant with CPAP
-Lab work reviewed from 12/28/2023 revealed normal creatinine of 0.9 and potassium level of 3.3
increased Aldactone to 75 mg twice a day(01/05) as there may be a hyperaldosterone component given his hypokalemia and resistant hypertension
normal plasma catecholamines serum metanephrine levels, 24hr urine labs ordered for confirmation
renal artery CT angiogram negative for renal artery stenosis, adrenal glands without adenomas but CT scan of chest revealed 1.5 cm adrenal lesion, CT abd repeat shows unlikely pheo with attenuation of 7 hounse bingham(pheo >10)
will await 24hr urine hormonal testing
s/p CT chest angio showed no significant vascular abnormalities, if still concern need CTA neck to eval in future
continue Labetalol, clonidine, hydralazine and ARB
BP better since addition of procardia at HS
If bps decreases more and pt feels dizzy likely decrease BB dose-pt aware
we can decrease BB and hydralzine to BID for better dosing and compliance
he previously on HCTZ prior and tolerated well
Will hold Ozempic for 1 month or atleast BP stabilizes as he has concern of it causing BP issues
cortisol is low end-would repeat out pt
detailed discussion with pt
01/07 we also reviewed possible 2nd opinion at [place] as out pt
-
-
Date of Service: January 09, 2024
CC / HPI / ROS
-
Chief Complaint:
Uncontrolled hypertension
History of Present Illness:
Blood pressure remains are much better this am
slept well
cr 1 stable, ARR pending
Review of Systems:
No evidence of chest pain shortness of breath headache or visual disturbance
dry mouth from clonidine
slept well
c/o heavy feeling in legs and little slow today
Labs
-
Labs:
WBC 7.9 10^3/uL (4.8-10.8) 01/02/24 06:59
RBC 5.16 10^6/uL (4.70-6.10) 01/02/24 06:59
Hgb 14.7 g/dL (13.0-18.0) 01/02/24 06:59
Hct 42.6 % (39.0-52.0) 01/02/24 06:59
Plt Count 197 10^3/uL (130-400) 01/02/24 06:59
Sodium 143 mmol/L (135-145) 01/09/24 05:25
Potassium 4.3 mmol/L (3.5-5.1) 01/09/24 05:25
Chloride 106 mmol/L (98-107) 01/09/24 05:25
Carbon Dioxide 24 mmol/L (22-30) 01/09/24 05:25
BUN 15 mg/dl (9-20) 01/09/24 05:25
Creatinine 1.0 mg/dL (0.7-1.3) 01/09/24 05:25
eGFR > 60.00 01/09/24 05:25
Glucose 106 mg/dl (70-99) H 01/09/24 05:25
Calcium 9.4 mg/dl (8.4-10.2) 01/09/24 05:25
Phosphorus 3.7 mg/dl (2.5-4.5) 01/09/24 05:25
Albumin Cancelled 01/01/24 14:03
Physical Exam
-
Vital Signs:
Vital Signs
Temp Pulse Resp BP Pulse Ox
97.3 F 89 18 119/82 97
01/09/24 12:01 01/09/24 12:01 01/09/24 12:01 01/09/24 12:01 01/09/24 12:01
Cardiovascular:: Regular rate and rhythm
Respiratory:: Bilateral: CTA
Lung Excursion:: Normal
Abdomen:: Nontender and Soft
Extremity Edema:: None: Bilateral:
Ro Catheter: No
--- NOTE | 2024-01-09 15:32 | W.DCSUMMARY ---
Discharge Summary
Discharge Data
Date of Admission: 01/01/24
Date of Discharge: 01/09/24
-
Pending Results: Yes
Additional Pending Results:
24 hr urine test results
Discharge Plan
-
Patient Disposition: Home (Routine Discharge)
Discharge Diagnosis/Procedures: Hypertensive urgency
Blood Pressure Asymmetry Between Arms
Left Adrenal Adenoma 14 mm
Fatty Liver Disease
History of Non-Ischemic Cardiomyopathy
Morbid Obesity
Obstructive Sleep Apnea
B12 deficiency
Allergic Rhinitis
Constipation
Condition: Fair
Diet: Low Fat and 2 Gram Sodium
Activity: As tolerated and No strenuous activity
Additional Activity: avoid strenuous activity for a week, then advance as tolerated
Driving Restrictions: As prior to admission
Bathing Restrictions: None
Blood Work: Please repeat BMP with primary care provider in 1 week of discharge.
Check B12 level with primary care provider in 1 month of discharge
Others Tests: Please obtain CT angiography of neck with primary care provider in 1-2 weeks of discharge for further evaluation blood pressure asymmetry between arms. A CTA chest was done during hospitalization and was noted negative for
aneurysm/dissection.
Activity Restrictions/Additional Instructions:
Please follow up with primary care provider in 1 week of discharge and keep your appointment with Nephrology.
Vascular follow up in 2-4 weeks recommended for further evaluation Blood pressure asymmetry upper extremities.
ENT follow up in 2-4 weeks recommended for evaluation chronic nasal congestion.
B12 supplementation prescribed for deficiency
For Better Blood Pressure Control:
-Nifedipine (procardia) 30 mg bedtime has been added
-Labetalol has been increased to 300 mg twice a day
-spironolactone has been increased to 75 mg twice a day
-and hydralazine has been reduced to twice a day
Check your blood pressure twice a day at home and keep a log for further discussions in follow up with your healthcare providers. Hold your blood pressure medications if your systolic blood pressure is <120.
Flonase has been prescribed for allergic rhinitis/nasal congestion. Avoid pseudoephedrine or pseudoephedrine containing medications as these can exacerbate your hypertension.
Laxatives have been prescribed as needed for constipation. These medications are available over the counter.
Please hold Ozempic and discuss with your primary care provider before resuming.
Please take medications as prescribed/recommended and follow up with primary care provider and/or other healthcare provider involved in your care for refills and/or further adjustment to your medication regimen as necessary.
Stand Alone Forms: Return to Work
Referrals:
Garrison Ro III, MD [Active] - in two to four weeks (Further evaluation BP asymmetry between arms. )
Nica Medeiros MD [Family Provider] - in one week
Rasheed Clark MD [Active] - in two to four weeks
Prescriptions:
New
labetalol 300 mg tablet
300 mg PO BID 30 Days Qty: 60 0RF
Rx Instructions:
Hold if SBP<120
polyethylene glycol 3350 [HealthyLax] 17 gram Powder In Packet
17 g PO DAILY PRN (Reason: constipation) Qty: 14 0RF
sennosides-docusate sodium 8.6-50 mg Tablet
1 tab PO BID PRN (Reason: Constipation) Qty: 14 0RF
nifedipine 30 mg Tablet Extended Release
30 mg PO HS 30 Days Qty: 30 0RF
Rx Instructions:
Hold if SBP<120
spironolactone 25 mg Tablet
75 mg PO BID 30 Days Qty: 180 0RF
Rx Instructions:
Hold if SBP<120
cyanocobalamin (vitamin B-12) 1,000 mcg Tablet
1,000 mcg PO DAILY 30 Days Qty: 30 0RF
fluticasone propionate [Flonase Allergy Relief] 50 mcg/actuation spray,suspension
2 spray intranasal DAILY Qty: 16 0RF
Rx Instructions:
Each nostril
Continued
colchicine 0.6 mg Tablet
0.3 mg PO DAILYPRN PRN (Reason: gout flare)
olopatadine 0.2 % Drops
1 drp BOTH EYES DAILYPRN PRN (Reason: eye irritation)
albuterol sulfate 90 mcg/actuation Hfa Aerosol Inhaler
2 puff INHALATION R Q6HPRN PRN (Reason: sob)
valsartan 320 mg Tablet
320 mg PO DAILY Qty: 0 0RF
Rx Instructions:
Hold if SBP<120
Changed
hydralazine 50 mg Tablet
50 mg PO BID Qty: 60 0RF
Rx Instructions:
Hold if SBP<120
clonidine HCl 0.2 mg tablet
0.2 mg PO BID Qty: 0 0RF
Rx Instructions:
Hold if SBP<120
Held
Ozempic 1 mg/dose (4 mg/3 mL) Pen Injector
1 mg SC SA
Hold Instructions: Discuss with your primary care provider before restarting.
Discontinued
labetalol 200 mg Tablet
200 mg PO BID
spironolactone 25 mg Tablet
25 mg PO NOON
Discharge Orders:
Discharge Patient (As Directed); Ordered 01/09/24
Ordered By: Thomas Mott
Discharge Date and Time
Print Language: KAZAKH
--- NOTE | 2024-01-09 15:49 | CM ---
Plan: discharge to home today; no needs
[2024-01-09 15:58] VITALS: BP 153/98
[2024-01-09 16:01] VITALS: BP 147/81
[2024-01-10 11:31] LABS: Aldosterone, Serum 59.6 ng/dL; Renin Activity Results <0.1 ng/mL/hr
== END 2024-01-09 16:30 | disposition home or self-care (01) | DRG 305 ==
LOC: 3 WEST ACU 15:02
PROVIDERS: ADMITTING PHYSICIAN Hospitalist; ATTENDING PHYSICIAN Internal Medicine; CONSULT PHYSICIAN Psychiatry & Neurology Psychiatry; CONSULT PHYSICIAN Specialist; EMERGENCY PHYSICIAN Emergency Medicine; FAMILY PHYSICIAN Student in an Organized Health Care Education/Training Program
PROC: 5A09357 Assistance with Respiratory Ventilation, Less than 24 Consecutive Hours, Continuous Positive Airway Pressure (ICD-10-PCS; 2024-01-01)
DX: I16.0 Hypertensive urgency (principal); I42.8 Other cardiomyopathies; Z68.41 Body mass index [BMI] 40.0-44.9, adult; I10 Essential (primary) hypertension; K76.0 Fatty (change of) liver, not elsewhere classified; I1A.0 Resistant hypertension; E11.9 Type 2 diabetes mellitus without complications; E66.01 Morbid (severe) obesity due to excess calories; J45.909 Unspecified asthma, uncomplicated; D35.02 Benign neoplasm of left adrenal gland; E53.8 Deficiency of other specified B group vitamins; E78.00 Pure hypercholesterolemia, unspecified; E87.6 Hypokalemia; F41.9 Anxiety disorder, unspecified; G47.33 Obstructive sleep apnea (adult) (pediatric); K21.9 Gastro-esophageal reflux disease without esophagitis; K59.00 Constipation, unspecified; M48.061 Spinal stenosis, lumbar region without neurogenic claudication; Z79.85 Long-term (current) use of injectable non-insulin antidiabetic drugs; Z79.899 Other long term (current) drug therapy; Z88.0 Allergy status to penicillin; Z82.49 Family history of ischemic heart disease and other diseases of the circulatory system
CPT/HCPCS: 71275; 74175; 74178; 80048; 81050; 82088; 82384; 82533; 82607; 82746; 83036; 83540; 83550; 83735; 83835; 84100; 84244; 84443; 84585; 85025; 85027; 87811; 93005; 93306; 96374; 99284; Q9950; Q9967